=== PATIENT | male | born 1945 | race Caucasian/White ===

== ENCOUNTER → 2016-11-11 11:16 | Emergency (ER) | payer MEDICARE ==
[~2016-11-11 11:16] MED LIST: Ibuprofen TAB* 600 MG PO ONE
--- NOTE | 2016-11-11 12:05 | ED ---
Upper Extremity Pain - HPI Summary HPI Summary: Patient presents to ED 3 days s/p mechanical fall with FOOSH and wrist pain with hand swelling. He is able to move the wrist and fingers with mild to moderate amount of pain. There is a noticeable deformity over the radial side of the left wrist. Endorses tingling in the right thumb intermittently. He has limited use of the wrist and hand and is unable to squeeze the hand. Denies other pain or complaints at this time. He has taken aleve x 2 days without significant relief of pain and symptoms. Pulses +2 bilaterally and cap refill < 2 sec - History of Current Complaint Chief Complaint: EDExtremityUpper Stated Complaint: LT HAND SWELLING/PAIN FROM FALL Time Seen by Provider: 11/11/16 11:26 Hx Obtained From: Patient Mechanism Of Injury: Twisted Onset/Duration: Started Hours Ago Timing: Constant Severity Initially: Moderate Severity Currently: Moderate Pain Location: Wrist, Hand Character: Aching Aggravating Factor(s): Movement, Flexion, Extension Alleviating Factor(s): Rest Associated Signs & Symptoms: Positive: Swelling, Numbness/Tingling - Allergies/Home Medications Allergies/Adverse Reactions: Allergies Allergy/AdvReac Type Severity Reaction Status Date / Time Bacitracin [From Neosporin] Allergy Severe Rash Verified 11/11/16 11:22 Neomycin [From Neosporin] Allergy Severe Rash Verified 11/11/16 11:22 Nystatin Allergy Severe Rash Verified 11/11/16 11:22 Polymyxin B [From Neosporin] Allergy Severe Rash Verified 11/11/16 11:22 PMH/Surg Hx/FS Hx/Imm Hx Previously Healthy: Yes Endocrine/Hematology History: Reports: Hx Diabetes - diabetic neuropathy Cardiovascular History: Reports: Hx Hypertension Denies: Hx Pacemaker/ICD Respiratory History: Reports: Hx Sleep Apnea - inst to bring Musculoskeletal History: Reports: Hx Arthritis, Hx Gout Sensory History: Reports: Hx Contacts or Glasses Denies: Hx Hearing Aid Opthamlomology History: Reports: Hx Contacts or Glasses Psychiatric History: Reports: Hx Depression Denies: Hx Panic Disorder - Surgical History Surgery Procedure, Year, and Place: 1977 rt wrist [facility] 2007 left hip replacement [facility] , RT knee replacement 2013 Hx Anesthesia Reactions: No - Immunization History Hx Pertussis Vaccination: No Immunizations Up to Date: Unable to Obtain/Confirm Infectious Disease History: Denies: Traveled Outside the [place] in Last 30 Days - Social History Occupation: Unemployed Lives: With Family Alcohol Use: None Hx Substance Use: No Substance Use Type: Reports: None Hx Tobacco Use: Yes Smoking Status (MU): Former Smoker Review of Systems Constitutional: Negative Eyes: Negative Cardiovascular: Negative Genitourinary: Negative Positive: no symptoms reported, see HPI Positive: Arthralgia, Myalgia Skin: Negative Neurological: Negative All Other Systems Reviewed And Are Negative: Yes Physical Exam - Summary Physical Exam Summary: Thorough physical exam was performed, focusing on special wrist tests. Limited ROM. Pain with palpation over raidal aspect of wrist at radial head. No pain with palpation over radial aspect over radial head. No pain, swelling or tenderness over anatomical snuffbox. No crepitus noted. No pain on palpation over medial or lateral elbow or forearm tenderness. Due to patient pain around injury, physical exam was limited. Pulses intact bilaterally. No temperature change, color change or pallor noted bilaterally. Sensory intact of radial, medial and ulnar nerve. Capillary refill < 2 sec. Triage Information Reviewed: Yes Vital Signs On Initial Exam: Initial Vitals Temp Pulse Resp BP Pulse Ox 97.7 F 85 16 138/63 91 11/11/16 11:22 11/11/16 11:22 11/11/16 11:22 11/11/16 11:22 11/11/16 11:22 Vital Signs Reviewed: Yes Appearance: Positive: Well-Appearing, Well-Nourished Skin: Positive: Warm, Skin Color Reflects Adequate Perfusion, Other - swelling of left hand without ecchymosis Eyes: Positive: EOMI, JACKY, Conjunctiva Clear Neck: Positive: Supple, No Lymphadenopathy Respiratory/Lung Sounds: Positive: Clear to Auscultation, Breath Sounds Present Cardiovascular: Positive: Normal, RRR, Pulses are Symmetrical in both Upper and Lower Extremities Musculoskeletal: Positive: Pain @ - left wrist with obvious deformity Neurological: Positive: Sensory/Motor Intact, Speech Normal Psychiatric: Positive: Normal Diagnostics - Vital Signs Vital Signs Temp Pulse Resp BP Pulse Ox 11/11/16 11:22 97.7 F 85 16 138/63 91 - Laboratory Lab Statement: Any lab studies that have been ordered have been reviewed, and results considered in the medical decision making process. Course/Dx - Course Course Of Treatment: Patient given 600mg ibuprofen. Allergies and medications reviewed with patient. Based on [place] Wrist Rules, patient sent to imaging. Xray negative for fracture or other acute findings. Soft tissue swelling noted over the dorsal aspect of the wrist. Wrist was jem wrapped to patient comfort and allow for immobilization for this period of time. Patient encouraged to follow up with PCP in 1 week. Encouraged Ibuprofen 600mg three times daily with meals for pain. Return precautions given. Educated patient regarding wrist injuries, healing time and the possibility of further evaluation and imaging as orthopedist sees fit. Xrays show degenerative changes with no other findings. Wrist wrapped with jem wrap. Rx for ibuprofen 600mg. Medications were reveiwed with patient. Encouarged to follow up with PCP or return to ED for worsening symptoms. Return precautions given. Patient understands and agrees with plan. Ok for discharge. Assessment/Plan: follow up with PCP - Diagnoses Differential Diagnosis/HQI/PQRI: Positive: Contusion, Fracture (Closed), Strain , Sprain Provider Diagnoses: Left wrist sprain Discharge - Discharge Plan Condition: Stable Disposition: HOME Prescriptions: Ibuprofen TAB* [Motrin TAB* 600 MG] 600 mg PO Q8H PRN #30 tab MDD 3 PRN Reason: Pain Patient Education Materials: Wrist Sprain (ED) Referrals: Man Vincent MD [Primary Care Provider] - Additional Instructions: Jem wrap area for your comfort and to allow for immobilization during this time to prevent re-injury. Ibuprofen 600mg three times daily with meals for pain. Follow up with orthopedic physician in 5-7 days if any symptoms become worse. If numbness, tingling or decreased sensation develop, you notice color changes in your fingers or pain is worsening, come back to ED immediately for re- evaluation. Protect the area. For your comfort level, do not bear weight, pull or push until you can injury is somewhat healed. This may involve the need for immobilization or crutches for a period of time. Rest the involved area, but not too long. You may need to be off your injury for some time to allow for healing, however excessive immobilization of joints can lead to stiffness and delay healing time. Early mobilization is encouraged if it is pain-free. Ice. Not directly on the skin. Cover with a towel. Apply ice no more than 30 minutes at a time Compression: You may use and keep an jem wrap bandage over the injury to decrease swelling. Again, this should be limited and be taken off periodically to encourage early range of motion and mobilization. Elevate: Try to elevate the injured area above the heart whenever possible. Follow up with your PCP for any increased swelling.
--- NOTE | 2016-11-11 12:17 | RAD ---
Indication: Left wrist swelling 3 views of the wrist demonstrates no fracture. There are degenerative changes of the radiocarpal joint. Joint space narrowing is noted. Degenerative changes of the trapezium first metacarpal joint is noted. IMPRESSION: Degenerative changes of the radiocarpal joint and first carpal metacarpal joint. No fracture is noted.
--- NOTE | 2016-11-11 12:18 | RAD ---
Indication: Left hand injury and fall. 4 views of left hand demonstrates degenerative changes of the proximal and distal interphalangeal joints of the second through fifth digits. No fracture is identified. Degenerative changes of the radiocarpal joint is noted. IMPRESSION: Degenerative changes of the proximal and distal interphalangeal joints and of the radiocarpal joint.
[2016-11-11 12:57] VITALS: BP 121/68
== END | disposition home or self-care (01) ==
LOC: ED 11:16
DX: S63.502A Unspecified sprain of left wrist, initial encounter (principal); W19.XXXA Unspecified fall, initial encounter; Y93.9 Activity, unspecified; Y92.9 Unspecified place or not applicable; E11.40 Type 2 diabetes mellitus with diabetic neuropathy, unspecified; I10 Essential (primary) hypertension; F32.9 Major depressive disorder, single episode, unspecified; Z96.642 Presence of left artificial hip joint; Z96.651 Presence of right artificial knee joint; Z87.891 Personal history of nicotine dependence; Z88.3 Allergy status to other anti-infective agents
CPT/HCPCS: 99281; A9270-GY

== ENCOUNTER 2020-06-20 16:14 | Inpatient (IN) ==
[2020-06-20] MEDS ORDERED: NS 0.9% 1000 ml BAG 1,000 ML IV ONE (17:29)
[2020-06-20 19:21] LABS: ALT 18 U/L (7-52); AST 18 U/L (13-39); Albumin 3.7 g/dL (3.2-5.2); Albumin/Globulin Ratio 1.2 (1-3); Alkaline Phosphatase 59 U/L (34-104); Anion Gap 7 mmol/L (2-11); BUN/Creatinine Ratio 18.3 (8-20); Blood Urea Nitrogen 19 mg/dL (6-24); CO2 Carbon Dioxide 27 mmol/L (22-32); Calcium 9.4 mg/dL (8.6-10.3); Chloride 106 mmol/L (101-111); EGFR African American 84.2 (>60); EGFR Non-African American 69.6 (>60); Globulin 3.2 g/dL (2-4); Glucose 150 mg/dL (70-100); Potassium 4.8 mmol/L (3.5-5.0); Sodium 140 mmol/L (135-145); Total Protein 6.9 g/dL (6.4-8.9)
[2020-06-20] MEDS ORDERED: Diltiazem (ADVAN VIAL) 100 MG/100 ML ADDV.BAG IV SCH ×2 (20:00→22:50)
[2020-06-20 20:21] LABS: Magnesium 1.9 mg/dL (1.9-2.7)
[2020-06-20 20:23] LABS: ABS Basophils 0.1 10^3/ul (0-0.2); ABS Eosinophils 0.3 10^3/ul (0-0.6); ABS Lymphocytes 1.4 10^3/ul (1.0-4.8); ABS Monocytes 0.9 10^3/ul (0-0.8); ABS Neutrophils 7.6 10^3/ul (1.5-7.7); Eosinophil % 3.2 %; Hematocrit 39 % (42-52); Hemoglobin 13.2 g/dL (14.0-18.0); Lymphocyte % 13.8 %; Mean Corpuscular HGB Conc 34 g/dL (31-36); Mean Corpuscular Hemoglobin 31 pg (27-31); Mean Corpuscular Volume 91 fL (80-94); Mean Platelet Volume 6.1 fL (7.4-10.4); Platelet Count 341 10^3/uL (150-450); Red Blood Count 4.31 10^6 /uL (4.18-5.48); Red Cell Distribution Width 17 % (10-15); White Blood Count 10.3 10^3/uL (3.5-10.8)
[2020-06-20 20:33] LABS: Activated Partial Thrombo Time 31.4 seconds (26.0-38.0); INR 1.15 (0.82-1.09)
[2020-06-20] MEDS ORDERED: Diltiazem IV push/loading dose 5 MG/ML 5 ML vial (25 mg) IV SLOW PU ONE (20:52)
[2020-06-20 20:54] LABS: Troponin I 0.03 ng/mL (<0.03)
[2020-06-20] MEDS ORDERED: Iodixanol (CONTRAST) 320 MG/ML 100 ML SDV IV ONE (21:18)
[2020-06-20] MEDS ORDERED: Furosemide 20 mg/2 ml IV VIAL IV SLOW PU ONE (22:34)
[2020-06-20] MEDS: Insulin GLARGINE 100 un/ml 10 ml VIAL SUBCUT SCH (22:37)
[2020-06-20 22:59] LABS: TSH Ultra Thyroid Stim Horm 1.11 mcIU/mL (0.34-5.60)
[2020-06-21 04:32] LABS: ABS Basophils 0.1 10^3/ul (0-0.2); ABS Eosinophils 0.4 10^3/ul (0-0.6); ABS Monocytes 0.9 10^3/ul (0-0.8); ABS Neutrophils 6.2 10^3/ul (1.5-7.7); Eosinophil % 4.6 %; Hematocrit 37 % (42-52); Hemoglobin 12.1 g/dL (14.0-18.0); Lymphocyte % 20.6 %; Mean Corpuscular HGB Conc 33 g/dL (31-36); Mean Corpuscular Hemoglobin 30 pg (27-31); Mean Corpuscular Volume 91 fL (80-94); Mean Platelet Volume 5.9 fL (7.4-10.4); Platelet Count 321 10^3/uL (150-450); Red Blood Count 4.02 10^6 /uL (4.18-5.48); Red Cell Distribution Width 17 % (10-15); White Blood Count 9.6 10^3/uL (3.5-10.8)
[2020-06-21 04:52] LABS: Albumin 3.6 g/dL (3.2-5.2); Albumin/Globulin Ratio 1.3 (1-3); BUN/Creatinine Ratio 17.1 (8-20); EGFR African American 78.1 (>60); EGFR Non-African American 64.6 (>60); Globulin 2.8 g/dL (2-4); Total Bilirubin 0.3 mg/dL (0.2-1.0); Total Protein 6.4 g/dL (6.4-8.9)
[2020-06-21] MEDS: Dextrose 50% Syringe 50 ml 25 GM/50 ML SYRINGE IV PUSH PRN ×2 (08:25→11:35)
[2020-06-21] MEDS ORDERED: Perflutren Lipid Microsphere 3 ML VIAL ONE (08:48)
[2020-06-21] MEDS ORDERED: Aspirin EC 81 mg TAB.EC (enteric coated) PO SCH (09:00)
[2020-06-21] MEDS: Cholecalciferol (VIT D3) 1,000 unit TAB PO SCH (09:47)
[2020-06-21] MEDS: Insulin GLARGINE 100 un/ml 10 ml VIAL SUBCUT SCH (10:06)
[2020-06-21] MEDS ORDERED: Iodixanol (CONTRAST) 320 MG/ML 100 ML SDV IV ONE (10:45)
[2020-06-21] MEDS: D5LR 1000 ml BAG 1,000 ML IV SCH ×2 (11:35→20:09)
[2020-06-21] MEDS ORDERED: Midazolam 5 mg/5 ml VIAL 1 mg/ml 5 ml VIAL (5 mg) ONE (12:49)
[2020-06-21] MEDS ORDERED: Flumazenil 0.5 mg/5 ml 0.1 MG/ML 5 ml VIAL ONE (12:49)
[2020-06-21] MEDS ORDERED: fentaNYL 100 mcg/2 ml 50 MCG/ML VIAL ONE (12:49)
[2020-06-21] MEDS ORDERED: Naloxone 0.4 mg VIAL 0.4 mg/ml 1 ml VIAL ONE (12:49)
[2020-06-21] MEDS ORDERED: Lorazepam PYXIS KEY ONE ×2 (12:51→13:54)
[2020-06-21] MEDS ORDERED: LORazepam 2 mg VIAL 1 ml ONE (12:51)
[2020-06-22 04:30] LABS: ABS Basophils 0.1 10^3/ul (0-0.2); ABS Eosinophils 0.4 10^3/ul (0-0.6); ABS Lymphocytes 1.7 10^3/ul (1.0-4.8); ABS Monocytes 0.9 10^3/ul (0-0.8); Eosinophil % 4.7 %; Hematocrit 41 % (42-52); Hemoglobin 12.9 g/dL (14.0-18.0); Lymphocyte % 18.3 %; Mean Corpuscular HGB Conc 32 g/dL (31-36); Mean Corpuscular Hemoglobin 29 pg (27-31); Mean Corpuscular Volume 93 fL (80-94); Mean Platelet Volume 6.3 fL (7.4-10.4); Platelet Count 305 10^3/uL (150-450); Red Blood Count 4.39 10^6 /uL (4.18-5.48); Red Cell Distribution Width 17 % (10-15); White Blood Count 9.1 10^3/uL (3.5-10.8)
[2020-06-22 04:48] LABS: Albumin 3.6 g/dL (3.2-5.2); Albumin/Globulin Ratio 1.2 (1-3); BUN/Creatinine Ratio 18.4 (8-20); Calcium 9.2 mg/dL (8.6-10.3); EGFR African American 85.2 (>60); EGFR Non-African American 70.4 (>60); Magnesium 2.2 mg/dL (1.9-2.7); Total Bilirubin 0.5 mg/dL (0.2-1.0); Total Protein 6.6 g/dL (6.4-8.9)
[2020-06-22] MEDS: Cholecalciferol (VIT D3) 1,000 unit TAB PO SCH (07:59)
[2020-06-22] MEDS ORDERED: Digoxin IV 0.5 MG/2 ML AMP (0.25 MG/ML) IV SLOW PU ONE ×4 (08:17→23:00)
[2020-06-22] MEDS ORDERED: Calcium Carb (TUMS) 500 mg CHEW TAB PO PRN (14:58)
[2020-06-23 04:50] LABS: BUN/Creatinine Ratio 25.2 (8-20); Calcium 8.8 mg/dL (8.6-10.3)
[2020-06-23 04:53] LABS: Potassium 5.3 mmol/L (3.5-5.0)
[2020-06-23 09:00] LABS: Magnesium 2.1 mg/dL (1.9-2.7); Phosphorus 3.9 mg/dL (2.5-5.0)
[2020-06-23] MEDS: Cholecalciferol (VIT D3) 1,000 unit TAB PO SCH (09:04)
[2020-06-23] MEDS: Multivitamins/Minerals TAB PO SCH (10:43)
[2020-06-23] MEDS ORDERED: Furosemide 40 mg/4 ml IV VIAL IV ONE (10:53)
[2020-06-24] MEDS: Multivitamins/Minerals TAB PO SCH (09:10)
[2020-06-24] MEDS: Cholecalciferol (VIT D3) 1,000 unit TAB PO SCH (09:11)
[2020-06-24 09:35] LABS: ALT 11 U/L (7-52); AST 9 U/L (13-39); Albumin 3.6 g/dL (3.2-5.2); Albumin/Globulin Ratio 1.1 (1-3); Alkaline Phosphatase 53 U/L (34-104); Anion Gap 6 mmol/L (2-11); BUN/Creatinine Ratio 29.6 (8-20); Blood Urea Nitrogen 34 mg/dL (6-24); CO2 Carbon Dioxide 31 mmol/L (22-32); Calcium 9.2 mg/dL (8.6-10.3); Chloride 98 mmol/L (101-111); Globulin 3.3 g/dL (2-4); Glucose 153 mg/dL (70-100); Magnesium 2.2 mg/dL (1.9-2.7); Potassium 4.6 mmol/L (3.5-5.0); Sodium 135 mmol/L (135-145); Total Protein 6.9 g/dL (6.4-8.9)
[2020-06-24 09:38] LABS: % Iron Saturation 7 % (15-55); Iron 22 ug/dL (50-212); Total Iron Binding Capacity 304 mcg/dL (250-450); Transferrin 217 mg/dL (203-362); Unsaturated Iron Binding < 289 ug/dL
[2020-06-24 09:54] LABS: Ferritin 143.2 ng/mL (24-336)
[2020-06-24] MEDS ORDERED: Furosemide 40 mg/4 ml IV VIAL IV SLOW PU ONE (10:17)
[2020-06-24] MEDS: Iron Sucrose 200 MG in NS 0.9% 100 ml BAG 100 ML IVPB SCH (10:58)
[2020-06-25] MEDS: Cholecalciferol (VIT D3) 1,000 unit TAB PO SCH (08:27)
[2020-06-25] MEDS: Multivitamins/Minerals TAB PO SCH (08:28)
[2020-06-25] MEDS: Iron Sucrose 200 MG in NS 0.9% 100 ml BAG 100 ML IVPB SCH (08:35)
[2020-06-25 08:44] LABS: ABS Basophils 0.1 10^3/ul (0-0.2); ABS Eosinophils 0.5 10^3/ul (0-0.6); ABS Monocytes 0.9 10^3/ul (0-0.8); ABS Neutrophils 7.2 10^3/ul (1.5-7.7); Eosinophil % 5.3 %; Hematocrit 37 % (42-52); Lymphocyte % 10.8 %; Mean Corpuscular HGB Conc 33 g/dL (31-36); Mean Corpuscular Hemoglobin 30 pg (27-31); Mean Corpuscular Volume 91 fL (80-94); Mean Platelet Volume 6.5 fL (7.4-10.4); Nucleated Red Blood Cells % 0.1; Platelet Count 299 10^3/uL (150-450); Red Blood Count 4.05 10^6 /uL (4.18-5.48); Red Cell Distribution Width 17 % (10-15); White Blood Count 9.7 10^3/uL (3.5-10.8)
[2020-06-25 08:56] LABS: BUN/Creatinine Ratio 27.5 (8-20); Calcium 9.2 mg/dL (8.6-10.3); EGFR African American 79.8 (>60); EGFR Non-African American 65.9 (>60); Magnesium 2.1 mg/dL (1.9-2.7); Potassium 4.5 mmol/L (3.5-5.0)
[2020-06-25] MEDS ORDERED: Furosemide 100 mg/10 ml IV VIAL IV ONE (10:30)
[2020-06-25] MEDS ORDERED: Albuterol 2.5mg/3 ml (0.083%) NEB.SOLN INH PRN (11:31)
[2020-06-25] MEDS: Furosemide 100 mg/10 ml IV VIAL IV SCH (17:03)
[2020-06-26 07:55] LABS: ABS Basophils 0.1 10^3/ul (0-0.2); ABS Eosinophils 0.5 10^3/ul (0-0.6); ABS Lymphocytes 1.2 10^3/ul (1.0-4.8); ABS Monocytes 0.8 10^3/ul (0-0.8); Eosinophil % 5.3 %; Hematocrit 40 % (42-52); Hemoglobin 13.1 g/dL (14.0-18.0); Lymphocyte % 12.8 %; Mean Corpuscular HGB Conc 33 g/dL (31-36); Mean Corpuscular Hemoglobin 30 pg (27-31); Mean Corpuscular Volume 91 fL (80-94); Mean Platelet Volume 6.7 fL (7.4-10.4); Platelet Count 355 10^3/uL (150-450); Red Cell Distribution Width 17 % (10-15); White Blood Count 9.6 10^3/uL (3.5-10.8)
[2020-06-26 08:25] LABS: BUN/Creatinine Ratio 29.2 (8-20); Calcium 9.7 mg/dL (8.6-10.3); EGFR African American 82.4 (>60); EGFR Non-African American 68.1 (>60); Magnesium 1.9 mg/dL (1.9-2.7); Potassium 4.3 mmol/L (3.5-5.0)
[2020-06-26] MEDS: Multivitamins/Minerals TAB PO SCH (08:36)
[2020-06-26] MEDS: Cholecalciferol (VIT D3) 1,000 unit TAB PO SCH (08:36)
[2020-06-26] MEDS: Furosemide 100 mg/10 ml IV VIAL IV SCH ×2 (08:37→13:50)
[2020-06-26] MEDS: Iron Sucrose 200 MG in NS 0.9% 100 ml BAG 100 ML IVPB SCH (08:57)
[2020-06-27 06:26] LABS: ABS Basophils 0.1 10^3/ul (0-0.2); ABS Eosinophils 0.6 10^3/ul (0-0.6); ABS Lymphocytes 1.3 10^3/ul (1.0-4.8); ABS Neutrophils 6.8 10^3/ul (1.5-7.7); Hematocrit 41 % (42-52); Hemoglobin 13.4 g/dL (14.0-18.0); Lymphocyte % 13.3 %; Mean Corpuscular HGB Conc 33 g/dL (31-36); Mean Corpuscular Hemoglobin 30 pg (27-31); Mean Corpuscular Volume 91 fL (80-94); Mean Platelet Volume 6.3 fL (7.4-10.4); Nucleated Red Blood Cells % 0.1; Platelet Count 344 10^3/uL (150-450); Red Blood Count 4.52 10^6 /uL (4.18-5.48); Red Cell Distribution Width 17 % (10-15); White Blood Count 9.8 10^3/uL (3.5-10.8)
[2020-06-27 06:46] LABS: Albumin 3.5 g/dL (3.2-5.2); BUN/Creatinine Ratio 30.8 (8-20); Calcium 9.6 mg/dL (8.6-10.3); EGFR African American 81.5 (>60); EGFR Non-African American 67.4 (>60); Globulin 3.4 g/dL (2-4); Potassium 4.2 mmol/L (3.5-5.0); Total Bilirubin 0.6 mg/dL (0.2-1.0); Total Protein 6.9 g/dL (6.4-8.9)
[2020-06-27] MEDS: Furosemide 100 mg/10 ml IV VIAL IV SCH (08:33)
[2020-06-27] MEDS: Multivitamins/Minerals TAB PO SCH (08:34)
[2020-06-27] MEDS: Cholecalciferol (VIT D3) 1,000 unit TAB PO SCH (08:34)
[2020-06-27] MEDS: Iron Sucrose 200 MG in NS 0.9% 100 ml BAG 100 ML IVPB SCH (08:37)
[2020-06-27] MEDS ORDERED: Metoprolol Tartrate 5 mg VIAL 5 ml VIAL (1 mg/ml) IV ONE (19:31)
[2020-06-27] MEDS ORDERED: Digoxin IV 0.5 MG/2 ML AMP (0.25 MG/ML) IV SLOW PU ONE (19:56)
[2020-06-27] MEDS ORDERED: Metoprolol Tartrate 5 mg VIAL 5 ml VIAL (1 mg/ml) IV PRN (22:50)
[2020-06-28] MEDS ORDERED: Metoprolol Tartrate 5 mg VIAL 5 ml VIAL (1 mg/ml) IV ONE (08:35)
[2020-06-28] MEDS: Multivitamins/Minerals TAB PO SCH (09:06)
[2020-06-28] MEDS: Cholecalciferol (VIT D3) 1,000 unit TAB PO SCH (09:08)
[2020-06-28] MEDS: Iron Sucrose 200 MG in NS 0.9% 100 ml BAG 100 ML IVPB SCH ×2 (09:12→10:30)
[2020-06-28 09:25] LABS: ABS Basophils 0.1 10^3/ul (0-0.2); ABS Eosinophils 0.3 10^3/ul (0-0.6); ABS Lymphocytes 1.2 10^3/ul (1.0-4.8); ABS Monocytes 1.3 10^3/ul (0-0.8); ABS Neutrophils 10.1 10^3/ul (1.5-7.7); Eosinophil % 2.6 %; Hematocrit 42 % (42-52); Hemoglobin 13.9 g/dL (14.0-18.0); Lymphocyte % 9.4 %; Mean Corpuscular HGB Conc 33 g/dL (31-36); Mean Corpuscular Hemoglobin 30 pg (27-31); Mean Corpuscular Volume 90 fL (80-94); Mean Platelet Volume 6.4 fL (7.4-10.4); Platelet Count 375 10^3/uL (150-450); Red Blood Count 4.66 10^6 /uL (4.18-5.48); Red Cell Distribution Width 17 % (10-15); White Blood Count 13.1 10^3/uL (3.5-10.8)
[2020-06-28 09:45] LABS: Albumin 3.6 g/dL (3.2-5.2); BUN/Creatinine Ratio 33.3 (8-20); Calcium 9.5 mg/dL (8.6-10.3); EGFR African American 71.4 (>60); Globulin 3.6 g/dL (2-4); Magnesium 1.8 mg/dL (1.9-2.7); Potassium 4.3 mmol/L (3.5-5.0); Total Bilirubin 0.7 mg/dL (0.2-1.0); Total Protein 7.2 g/dL (6.4-8.9)
[2020-06-28] MEDS: Insulin GLARGINE 100 un/ml 10 ml VIAL SUBCUT SCH (09:48)
[2020-06-28 09:50] LABS: Digoxin 1.2 ng/ml (0.8-2.0)
[2020-06-28] MEDS ORDERED: Magnesium Sulfate IV 1GM/100ML 1 GM/100 ML BAG IV ONE (09:55)
[2020-06-28] MEDS ORDERED: Dextrose 50% Syringe 50 ml 25 GM/50 ML SYRINGE IV PUSH PRN (12:07)
[2020-06-28] MEDS: cefTRIAXone 1 gm/50 mL NS BAG 1 GM/50 ML BAG IVPB SCH (16:08)
[2020-06-28 17:19] LABS: Urine Appearance Cloudy; Urine Bilirubin Negative (Negative); Urine Blood Negative (Negative); Urine Color Yellow; Urine Glucose 1+(50 mg/dL) (Negative); Urine Ketones Negative (Negative); Urine Nitrite Negative (Negative); Urine Protein Negative (Negative); Urine Specific Gravity 1.014 (1.002-1.030); Urine Urobilinogen Negative (Negative)
[2020-06-28] MEDS: DOXYcycline 100 MG in NS 0.9% 250 ml 250 ML IVPB SCH (17:25)
[2020-06-29 05:48] LABS: ABS Basophils 0.1 10^3/ul (0-0.2); ABS Eosinophils 0.3 10^3/ul (0-0.6); ABS Lymphocytes 1.7 10^3/ul (1.0-4.8); ABS Monocytes 1.3 10^3/ul (0-0.8); ABS Neutrophils 9.2 10^3/ul (1.5-7.7); Eosinophil % 2.3 %; Hematocrit 41 % (42-52); Hemoglobin 13.6 g/dL (14.0-18.0); Lymphocyte % 13.2 %; Mean Corpuscular HGB Conc 33 g/dL (31-36); Mean Corpuscular Hemoglobin 30 pg (27-31); Mean Corpuscular Volume 90 fL (80-94); Mean Platelet Volume 6.6 fL (7.4-10.4); Platelet Count 383 10^3/uL (150-450); Red Blood Count 4.57 10^6 /uL (4.18-5.48); Red Cell Distribution Width 17 % (10-15); White Blood Count 12.6 10^3/uL (3.5-10.8)
[2020-06-29] MEDS: DOXYcycline 100 MG in NS 0.9% 250 ml 250 ML IVPB SCH ×2 (05:54→18:09)
[2020-06-29 06:01] LABS: BUN/Creatinine Ratio 28.8 (8-20); Calcium 9.6 mg/dL (8.6-10.3); EGFR African American 78.1 (>60); EGFR Non-African American 64.6 (>60); Magnesium 2.1 mg/dL (1.9-2.7); Potassium 4.1 mmol/L (3.5-5.0)
[2020-06-29] MEDS: Cholecalciferol (VIT D3) 1,000 unit TAB PO SCH (08:40)
[2020-06-29] MEDS: Multivitamins/Minerals TAB PO SCH (08:40)
[2020-06-29] MEDS: Insulin GLARGINE 100 un/ml 10 ml VIAL SUBCUT SCH (08:50)
[2020-06-29] MEDS ORDERED: COVID-19 VACCINE, MRNA(MODERNA)/PF 100 MCG/0.5 ML IM ONE (09:00)
[2020-06-29] MEDS ORDERED: Furosemide 40 mg/4 ml IV VIAL IV SLOW PU ONE (13:18)
[2020-06-29 13:39] LABS: C Reactive Protein 211.34 mg/L (<8.01)
[2020-06-29] MEDS: cefTRIAXone 1 gm/50 mL NS BAG 1 GM/50 ML BAG IVPB SCH (14:14)
[2020-06-30] MEDS: DOXYcycline 100 MG in NS 0.9% 250 ml 250 ML IVPB SCH (05:36)
[2020-06-30 08:34] LABS: BUN/Creatinine Ratio 30.7 (8-20); Calcium 9.7 mg/dL (8.6-10.3); EGFR African American 87.1 (>60)
[2020-06-30] MEDS: Cholecalciferol (VIT D3) 1,000 unit TAB PO SCH (09:37)
[2020-06-30] MEDS: Multivitamins/Minerals TAB PO SCH (09:37)
[2020-06-30] MEDS: Insulin GLARGINE 100 un/ml 10 ml VIAL SUBCUT SCH (10:00)
[2020-06-30] MEDS ORDERED: Furosemide 20 mg/2 ml IV VIAL IV SLOW PU ONE (12:38)
[2020-06-30 13:36] LABS: ABS Basophils 0.1 10^3/ul (0-0.2); ABS Eosinophils 0.4 10^3/ul (0-0.6); ABS Lymphocytes 0.8 10^3/ul (1.0-4.8); ABS Monocytes 0.9 10^3/ul (0-0.8); ABS Neutrophils 9.7 10^3/ul (1.5-7.7); Eosinophil % 3.6 %; Hematocrit 41 % (42-52); Hemoglobin 13.7 g/dL (14.0-18.0); Lymphocyte % 6.6 %; Mean Corpuscular HGB Conc 33 g/dL (31-36); Mean Corpuscular Hemoglobin 30 pg (27-31); Mean Corpuscular Volume 90 fL (80-94); Mean Platelet Volume 6.6 fL (7.4-10.4); Platelet Count 371 10^3/uL (150-450); Red Blood Count 4.58 10^6 /uL (4.18-5.48); Red Cell Distribution Width 17 % (10-15); White Blood Count 11.9 10^3/uL (3.5-10.8)
[2020-06-30] MEDS ORDERED: Furosemide 40 mg/4 ml IV VIAL IV SLOW PU ONE (15:00)
[2020-06-30] MEDS: cefTRIAXone 1 gm/50 mL NS BAG 1 GM/50 ML BAG IVPB SCH (15:21)
[2020-07-01] MEDS ORDERED: Metoprolol Tartrate 5 mg VIAL 5 ml VIAL (1 mg/ml) IV ONE ×2 (04:11→05:25)
[2020-07-01 05:01] LABS: ABS Basophils 0.1 10^3/ul (0-0.2); ABS Eosinophils 0.5 10^3/ul (0-0.6); ABS Lymphocytes 1.3 10^3/ul (1.0-4.8); ABS Monocytes 0.9 10^3/ul (0-0.8); ABS Neutrophils 8.5 10^3/ul (1.5-7.7); Eosinophil % 4.6 %; Hematocrit 41 % (42-52); Hemoglobin 13.9 g/dL (14.0-18.0); Lymphocyte % 11.5 %; Mean Corpuscular HGB Conc 34 g/dL (31-36); Mean Corpuscular Hemoglobin 31 pg (27-31); Mean Corpuscular Volume 90 fL (80-94); Mean Platelet Volume 6.5 fL (7.4-10.4); Nucleated Red Blood Cells % 0.1; Platelet Count 403 10^3/uL (150-450); Red Blood Count 4.53 10^6 /uL (4.18-5.48); Red Cell Distribution Width 17 % (10-15); White Blood Count 11.4 10^3/uL (3.5-10.8)
[2020-07-01 05:19] LABS: BUN/Creatinine Ratio 31.1 (8-20); C Reactive Protein 179.66 mg/L (<8.01); Calcium 9.6 mg/dL (8.6-10.3); EGFR African American 82.4 (>60); EGFR Non-African American 68.1 (>60)
[2020-07-01] MEDS: Cholecalciferol (VIT D3) 1,000 unit TAB PO SCH (09:04)
[2020-07-01] MEDS: Multivitamins/Minerals TAB PO SCH (09:06)
[2020-07-01] MEDS: Insulin GLARGINE 100 un/ml 10 ml VIAL SUBCUT SCH ×2 (09:07→21:38)
[2020-07-01 09:22] LABS: Magnesium 1.9 mg/dL (1.9-2.7)
[2020-07-01] MEDS ORDERED: Furosemide 40 mg/4 ml IV VIAL ONE (09:22)
[2020-07-01] MEDS: Furosemide 40 mg/4 ml IV VIAL IV SLOW PU ONE ×2 (09:35→17:04)
[2020-07-02 05:00] LABS: ABS Basophils 0.1 10^3/ul (0-0.2); ABS Eosinophils 0.4 10^3/ul (0-0.6); ABS Lymphocytes 1.8 10^3/ul (1.0-4.8); ABS Neutrophils 7.8 10^3/ul (1.5-7.7); Hematocrit 43 % (42-52); Hemoglobin 13.9 g/dL (14.0-18.0); Lymphocyte % 16.2 %; Mean Corpuscular HGB Conc 33 g/dL (31-36); Mean Corpuscular Hemoglobin 30 pg (27-31); Mean Corpuscular Volume 90 fL (80-94); Mean Platelet Volume 6.8 fL (7.4-10.4); Nucleated Red Blood Cells % 0.1; Platelet Count 407 10^3/uL (150-450); Red Cell Distribution Width 17 % (10-15); White Blood Count 11.2 10^3/uL (3.5-10.8)
[2020-07-02 05:21] LABS: Anion Gap 8 mmol/L (2-11); BUN/Creatinine Ratio 30.4 (8-20); Blood Urea Nitrogen 34 mg/dL (6-24); CO2 Carbon Dioxide 35 mmol/L (22-32); Calcium 9.7 mg/dL (8.6-10.3); Chloride 95 mmol/L (101-111); EGFR African American 77.3 (>60); EGFR Non-African American 63.9 (>60); Glucose 192 mg/dL (70-100); Potassium 3.9 mmol/L (3.5-5.0); Sodium 138 mmol/L (135-145)
[2020-07-02] MEDS: Multivitamins/Minerals TAB PO SCH (08:49)
[2020-07-02] MEDS: Cholecalciferol (VIT D3) 1,000 unit TAB PO SCH (08:49)
[2020-07-02] MEDS: Insulin GLARGINE 100 un/ml 10 ml VIAL SUBCUT SCH ×2 (08:50→21:02)
[2020-07-02] MEDS ORDERED: Potassium Chlor 20 meq TAB.ER PO ONE ×2 (09:41→17:00)
[2020-07-02] MEDS ORDERED: Furosemide 20 mg/2 ml IV VIAL IV SLOW PU ONE ×2 (09:43→11:16)
[2020-07-02] MEDS ORDERED: Metoprolol Tartrate 5 mg VIAL 5 ml VIAL (1 mg/ml) IV ONE ×2 (11:27→16:09)
[2020-07-02] MEDS ORDERED: Metoprolol Tartrate 5 mg VIAL 5 ml VIAL (1 mg/ml) ONE (11:40)
[2020-07-02] MEDS ORDERED: Furosemide 40 mg/4 ml IV VIAL IV SLOW PU ONE (15:00)
[2020-07-02] MEDS ORDERED: Iron Sucrose 200 MG in NS 0.9% 100 ml BAG 100 ML IVPB ONE (16:10)
[2020-07-02] MEDS ORDERED: Potassium Chloride LIQUID 20 MEQ/15 ML LIQUID PO ONE (16:13)
[2020-07-02 17:02] LABS: Troponin I 0.03 ng/mL (<0.03)
[2020-07-03] MEDS ORDERED: Insulin GLARGINE 100 un/ml 10 ml VIAL SUBCUT ONE ×2 (08:12→21:00)
[2020-07-03] MEDS: Insulin GLARGINE 100 un/ml 10 ml VIAL SUBCUT SCH ×2 (08:13→20:48)
[2020-07-03] MEDS ORDERED: Perflutren Lipid Microsphere 3 ML VIAL ONE (08:31)
[2020-07-03 08:32] LABS: ABS Basophils 0.1 10^3/ul (0-0.2); ABS Eosinophils 0.4 10^3/ul (0-0.6); ABS Lymphocytes 1.6 10^3/ul (1.0-4.8); ABS Monocytes 1.1 10^3/ul (0-0.8); ABS Neutrophils 8.9 10^3/ul (1.5-7.7); Eosinophil % 3.3 %; Hematocrit 43 % (42-52); Hemoglobin 14.2 g/dL (14.0-18.0); Lymphocyte % 13.1 %; Mean Corpuscular HGB Conc 33 g/dL (31-36); Mean Corpuscular Hemoglobin 30 pg (27-31); Mean Corpuscular Volume 90 fL (80-94); Mean Platelet Volume 6.9 fL (7.4-10.4); Nucleated Red Blood Cells % 0.1; Platelet Count 398 10^3/uL (150-450); Red Blood Count 4.76 10^6 /uL (4.18-5.48); Red Cell Distribution Width 17 % (10-15); White Blood Count 12.1 10^3/uL (3.5-10.8)
[2020-07-03] MEDS: Cholecalciferol (VIT D3) 1,000 unit TAB PO SCH (08:35)
[2020-07-03] MEDS: Multivitamins/Minerals TAB PO SCH (08:35)
[2020-07-03 08:36] LABS: BUN/Creatinine Ratio 29.4 (8-20); Calcium 9.9 mg/dL (8.6-10.3); EGFR African American 79.8 (>60); EGFR Non-African American 65.9 (>60); Potassium 4.2 mmol/L (3.5-5.0)
[2020-07-03 08:53] LABS: Activated Partial Thrombo Time 35.7 seconds (26.0-38.0); INR 1.4 (0.82-1.09)
[2020-07-03 09:11] LABS: C Reactive Protein 133.99 mg/L (<8.01)
[2020-07-03] MEDS ORDERED: VERAPAMIL 2.5 MG/ML 2 ML VIAL ** 5 mg/2 ml ONE (12:47)
[2020-07-03] MEDS ORDERED: Iohexol 350 (CONTRAST) 200 ML MDV IV ONE (12:47)
[2020-07-03] MEDS ORDERED: Heparin 1,000 UNIT/ML 10 ml (10,000 UNITS) CATHLAB/DIALYSIS ONE (12:47)
[2020-07-03] MEDS ORDERED: Midazolam 5 mg/5 ml VIAL 1 mg/ml 5 ml VIAL (5 mg) ONE (12:47)
[2020-07-03] MEDS ORDERED: fentaNYL 100 mcg/2 ml 50 MCG/ML VIAL ONE (12:47)
[2020-07-03] MEDS ORDERED: Lidocaine 1% VIAL 10 MG/ML VIAL ONE ×2 (12:47→13:56)
[2020-07-03] MEDS ORDERED: nitroGLYCERIN DRIP 25,000 MCG/250 ML BTL ONE (12:48)
[2020-07-03] MEDS ORDERED: Heparin 2 UNITS/ML IVPREMIX 2,000 UNIT/1,000 ML BAG IV ONE (12:49)
[2020-07-03] MEDS ORDERED: Heparin 2 UNITS/ML IVPREMIX 1,000 UNIT/500 ML BAG IV ONE (13:33)
[2020-07-03] MEDS ORDERED: ceFAZolin 2 GM PREMIX 2 GM/50 ML BAG IVPB ONE (14:00)
[2020-07-03] MEDS ORDERED: ceFAZolin VIAL 1 GM in NS *SYRINGE* 10 ML IVPB ONE (14:00)
[2020-07-03] MEDS ORDERED: NS 0.9% 1000 ml BAG 1,000 ML IV SCH (15:00)
[2020-07-03] MEDS ORDERED: Furosemide 40 mg/4 ml IV VIAL IV SLOW PU ONE (17:00)
[2020-07-03] MEDS ORDERED: Senna TAB 8.6 mg TAB PO PRN (19:33)
[2020-07-03] MEDS ORDERED: Magnesium Hydroxide LIQ 30 ML UDC PO PRN (19:33)
[2020-07-04] MEDS ORDERED: Ketamine HCL 50 mg/ml 10 ml VIAL (500 MG) ONE (06:54)
[2020-07-04] MEDS ORDERED: Midazolam 10 mg/10 ml VIAL 1 mg/ml 10 ml VIAL (10 mg) ONE (06:54)
[2020-07-04] MEDS ORDERED: Propofol 10 MG/ML 20 ML BTL ONE (06:54)
[2020-07-04] MEDS ORDERED: fentaNYL 100 mcg/2 ml 50 MCG/ML VIAL ONE (06:54)
[2020-07-04] MEDS ORDERED: Lidocaine 2% PF 5 ML VIAL ONE (06:54)
[2020-07-04] MEDS ORDERED: Ondansetron 4 mg VIAL 2 MG/ML 2 ml VIAL ONE (06:54)
[2020-07-04] MEDS ORDERED: ceFAZolin 2 GM PREMIX 2 GM/50 ML BAG IVPB ONE (07:04)
[2020-07-04] MEDS ORDERED: ceFAZolin VIAL 1 GM in NS 0.9% 50 ML 50 ML IVPB ONE (07:04)
[2020-07-04] MEDS ORDERED: ceFAZolin 1 GM/10 ML flush SYRINGE for pocket flush (cardiology) FLUSH ONE (07:04)
[2020-07-04 07:09] LABS: ABS Basophils 0.1 10^3/ul (0-0.2); ABS Eosinophils 0.4 10^3/ul (0-0.6); ABS Lymphocytes 1.3 10^3/ul (1.0-4.8); ABS Neutrophils 9.1 10^3/ul (1.5-7.7); Eosinophil % 3.5 %; Hematocrit 42 % (42-52); Hemoglobin 13.9 g/dL (14.0-18.0); Lymphocyte % 10.8 %; Mean Corpuscular HGB Conc 33 g/dL (31-36); Mean Corpuscular Hemoglobin 30 pg (27-31); Mean Corpuscular Volume 91 fL (80-94); Mean Platelet Volume 6.6 fL (7.4-10.4); Platelet Count 332 10^3/uL (150-450); Red Blood Count 4.59 10^6 /uL (4.18-5.48); Red Cell Distribution Width 17 % (10-15); White Blood Count 11.9 10^3/uL (3.5-10.8)
[2020-07-04 07:29] LABS: BUN/Creatinine Ratio 25.5 (8-20); Calcium 9.6 mg/dL (8.6-10.3); EGFR African American 86.2 (>60); EGFR Non-African American 71.2 (>60); Potassium 4.2 mmol/L (3.5-5.0)
[2020-07-04] MEDS ORDERED: ceFAZolin 2 GM PREMIX 2 GM/50 ML BAG ONE (07:51)
[2020-07-04] MEDS ORDERED: ceFAZolin VIAL 1 GM in NS *SYRINGE* 10 ML IVPB ONE (08:00)
[2020-07-04] MEDS ORDERED: Lidocaine 1% VIAL 10 MG/ML VIAL ONE (08:20)
[2020-07-04] MEDS ORDERED: Metoprolol Tartrate 5 mg VIAL 5 ml VIAL (1 mg/ml) ONE (08:26)
[2020-07-04] MEDS ORDERED: Insulin GLARGINE 100 un/ml 10 ml VIAL SUBCUT SCH (09:00)
[2020-07-04] MEDS ORDERED: oxyCODONE/Acetamin 5/325 mg TAB PO PRN (09:10)
[2020-07-04] MEDS ORDERED: Phenylephrine 40 mcg/mL 10mL (400mcg) SYRINGE ONE (09:21)
[2020-07-04] MEDS ORDERED: Phenylephrine IV 10 MG/ML 1 ml VIAL ONE (09:21)
[2020-07-04] MEDS ORDERED: EPHEDrine (Pressors) 50 MG/ML VIAL ONE (09:22)
[2020-07-04] MEDS: Cholecalciferol (VIT D3) 1,000 unit TAB PO SCH (10:51)
[2020-07-04] MEDS: Multivitamins/Minerals TAB PO SCH (10:52)
[2020-07-04] MEDS: Insulin GLARGINE 100 un/ml 10 ml VIAL SUBCUT SCH ×2 (10:56→21:28)
[2020-07-04] MEDS: ceFAZolin VIAL 1 GM in NS 0.9% 50 ML 50 ML IVPB SCH (16:25)
[2020-07-05] MEDS: ceFAZolin VIAL 1 GM in NS 0.9% 50 ML 50 ML IVPB SCH ×2 (01:37→08:41)
[2020-07-05 06:41] LABS: ABS Basophils 0.1 10^3/ul (0-0.2); ABS Eosinophils 0.3 10^3/ul (0-0.6); ABS Lymphocytes 1.3 10^3/ul (1.0-4.8); ABS Monocytes 1.2 10^3/ul (0-0.8); ABS Neutrophils 9.5 10^3/ul (1.5-7.7); Eosinophil % 2.3 %; Hematocrit 41 % (42-52); Hemoglobin 13.3 g/dL (14.0-18.0); Lymphocyte % 10.4 %; Mean Corpuscular HGB Conc 33 g/dL (31-36); Mean Corpuscular Hemoglobin 29 pg (27-31); Mean Corpuscular Volume 90 fL (80-94); Mean Platelet Volume 6.6 fL (7.4-10.4); Platelet Count 325 10^3/uL (150-450); Red Blood Count 4.52 10^6 /uL (4.18-5.48); Red Cell Distribution Width 17 % (10-15); White Blood Count 12.3 10^3/uL (3.5-10.8)
[2020-07-05 07:53] LABS: BUN/Creatinine Ratio 23.8 (8-20); Calcium 9.4 mg/dL (8.6-10.3); EGFR African American 87.1 (>60); Potassium 3.9 mmol/L (3.5-5.0)
[2020-07-05 08:25] LABS: C Reactive Protein 222.8 mg/L (<8.01)
[2020-07-05 09:30] LABS: Magnesium 2.1 mg/dL (1.9-2.7)
[2020-07-05] MEDS: Cholecalciferol (VIT D3) 1,000 unit TAB PO SCH (09:50)
[2020-07-05] MEDS: Multivitamins/Minerals TAB PO SCH (09:50)
[2020-07-05] MEDS: Insulin GLARGINE 100 un/ml 10 ml VIAL SUBCUT SCH ×2 (09:51→21:10)
[2020-07-05] MEDS ORDERED: Bumetanide IV 0.25 MG/ML 4 ml VIAL (1 mg) SLOW PUSH ONE (10:00)
[2020-07-06 06:15] LABS: ABS Basophils 0.1 10^3/ul (0-0.2); ABS Eosinophils 0.3 10^3/ul (0-0.6); ABS Lymphocytes 0.9 10^3/ul (1.0-4.8); ABS Monocytes 1.2 10^3/ul (0-0.8); ABS Neutrophils 11.7 10^3/ul (1.5-7.7); Eosinophil % 1.9 %; Hematocrit 43 % (42-52); Hemoglobin 14.1 g/dL (14.0-18.0); Lymphocyte % 6.5 %; Mean Corpuscular HGB Conc 33 g/dL (31-36); Mean Corpuscular Hemoglobin 30 pg (27-31); Mean Corpuscular Volume 90 fL (80-94); Mean Platelet Volume 6.8 fL (7.4-10.4); Platelet Count 348 10^3/uL (150-450); Red Blood Count 4.74 10^6 /uL (4.18-5.48); Red Cell Distribution Width 17 % (10-15); White Blood Count 14.1 10^3/uL (3.5-10.8)
[2020-07-06 06:29] LABS: BUN/Creatinine Ratio 26.9 (8-20); Calcium 9.8 mg/dL (8.6-10.3); EGFR African American 84.2 (>60); EGFR Non-African American 69.6 (>60); Potassium 3.9 mmol/L (3.5-5.0)
[2020-07-06] MEDS: Insulin GLARGINE 100 un/ml 10 ml VIAL SUBCUT SCH ×2 (09:22→21:07)
[2020-07-06] MEDS: Multivitamins/Minerals TAB PO SCH (09:23)
[2020-07-06] MEDS: Cholecalciferol (VIT D3) 1,000 unit TAB PO SCH (09:23)
[2020-07-06 17:41] LABS: C Reactive Protein 255.53 mg/L (<8.01)
[2020-07-07] MEDS: Insulin GLARGINE 100 un/ml 10 ml VIAL SUBCUT SCH ×2 (10:21→21:06)
[2020-07-07] MEDS: Cholecalciferol (VIT D3) 1,000 unit TAB PO SCH (10:37)
[2020-07-07] MEDS: Multivitamins/Minerals TAB PO SCH (10:37)
[2020-07-08 06:14] LABS: ABS Basophils 0.1 10^3/ul (0-0.2); ABS Eosinophils 0.2 10^3/ul (0-0.6); ABS Lymphocytes 1.3 10^3/ul (1.0-4.8); ABS Monocytes 1.2 10^3/ul (0-0.8); ABS Neutrophils 8.3 10^3/ul (1.5-7.7); Eosinophil % 2.2 %; Hematocrit 42 % (42-52); Hemoglobin 13.6 g/dL (14.0-18.0); Lymphocyte % 11.4 %; Mean Corpuscular HGB Conc 33 g/dL (31-36); Mean Corpuscular Hemoglobin 30 pg (27-31); Mean Corpuscular Volume 90 fL (80-94); Mean Platelet Volume 6.7 fL (7.4-10.4); Platelet Count 383 10^3/uL (150-450); Red Cell Distribution Width 17 % (10-15)
[2020-07-08 06:31] LABS: BUN/Creatinine Ratio 36.1 (8-20); C Reactive Protein 335.24 mg/L (<8.01); Calcium 9.7 mg/dL (8.6-10.3); EGFR African American 80.7 (>60); EGFR Non-African American 66.7 (>60); Potassium 3.7 mmol/L (3.5-5.0)
[2020-07-08 08:34] VITALS: BP 101/59
[2020-07-08] MEDS: Multivitamins/Minerals TAB PO SCH (08:58)
[2020-07-08] MEDS: Cholecalciferol (VIT D3) 1,000 unit TAB PO SCH (08:59)
[2020-07-08] MEDS: Insulin GLARGINE 100 un/ml 10 ml VIAL SUBCUT SCH (09:27)
== END 2020-07-08 09:45 | DRG 242 ==
LOC: ED 16:14 → ICU 20:53 → MEDTELE 06-23 17:33
PROVIDERS: ADMIT Internal Medicine Critical Care Medicine; ATTEND Internal Medicine

== ENCOUNTER 2020-10-07 16:58 | Inpatient (IN) ==
[2020-10-07] MEDS ORDERED: Piperacillin/Tazobac ADVAN 3.375 GM in NS 0.9% 100 ml BAG 100 ML IVPB ONE (17:15)
[2020-10-07] MEDS ORDERED: NS 0.9% 1000 ml BAG 1,000 ML IV ONE (17:20)
[2020-10-07] MEDS ORDERED: Vancomycin 2,000 MG in NS 0.9% 500 ml BAG 500 ML IVPB ONE (18:00)
[2020-10-07 18:04] LABS: ABS Basophils 0.1 10^3/ul (0-0.2); ABS Eosinophils 0.6 10^3/ul (0-0.6); ABS Lymphocytes 1.5 10^3/ul (1.0-4.8); ABS Monocytes 0.9 10^3/ul (0-0.8); ABS Neutrophils 7.6 10^3/ul (1.5-7.7); Eosinophil % 5.3 %; Hematocrit 35 % (42-52); Hemoglobin 11.2 g/dL (14.0-18.0); Lymphocyte % 14.1 %; Mean Corpuscular HGB Conc 32 g/dL (31-36); Mean Corpuscular Hemoglobin 28 pg (27-31); Mean Corpuscular Volume 88 fL (80-94); Mean Platelet Volume 6.6 fL (7.4-10.4); Platelet Count 356 10^3/uL (150-450); Red Blood Count 3.96 10^6 /uL (4.18-5.48); Red Cell Distribution Width 18 % (10-15); White Blood Count 10.6 10^3/uL (3.5-10.8)
[2020-10-07 18:17] LABS: Activated Partial Thrombo Time 35.4 seconds (26.0-38.0); INR 1.53 (0.86-1.15)
[2020-10-07 18:20] LABS: Albumin 3.3 g/dL (3.2-5.2); Albumin/Globulin Ratio 0.7 (1-3); C Reactive Protein 126.95 mg/L (<8.01); Calcium 9.9 mg/dL (8.6-10.3); EGFR African American 23.5 (>60); EGFR Non-African American 19.5 (>60); Globulin 4.5 g/dL (2-4); Potassium 4.6 mmol/L (3.5-5.0); Total Bilirubin 0.3 mg/dL (0.2-1.0); Total Protein 7.8 g/dL (6.4-8.9)
[2020-10-07 18:21] LABS: Troponin I 0.01 ng/mL (<0.03)
[2020-10-07] MEDS: Lactated Ringers 1000 ml BAG 1,000 ML IV SCH ×2 (20:00→23:33)
[2020-10-07 20:31] LABS: Urine Appearance Clear; Urine Bilirubin Negative (Negative); Urine Blood Negative (Negative); Urine Color Yellow; Urine Glucose Negative (Negative); Urine Ketones Negative (Negative); Urine Nitrite Negative (Negative); Urine Protein Negative (Negative); Urine Specific Gravity 1.008 (1.002-1.030); Urine Urobilinogen Negative (Negative)
[2020-10-07] MEDS ORDERED: Lactated Ringers 1000 ml BAG 1,000 ML IV ONE (21:09)
[2020-10-07] MEDS ORDERED: Vancomycin 1,000 MG in NS 0.9% 250 ml 250 ML IVPB ONE (21:09)
[2020-10-07] MEDS ORDERED: Dextrose 50% Syringe 50 ml 25 GM/50 ML SYRINGE IV PUSH PRN (21:09)
[2020-10-07] MEDS ORDERED: Albuterol HFA INHALER 8 gm MDI INH PRN (21:24)
[2020-10-07] MEDS ORDERED: Cefepime 2 GM IV - ED ONCE IV ONE (22:00)
[2020-10-07] MEDS ORDERED: metroNIDAZOLE IV 500 MG/100ML 100 ML IVPB ONE (22:00)
[2020-10-07] MEDS ORDERED: Vancomycin per Pharmacy 1 EA NOTE FOLLOW UP SCH (22:00)
[2020-10-08] MEDS ORDERED: Lidocaine 2% JELLY 6 ML TOPICAL ONE (01:06)
[2020-10-08 07:11] LABS: ABS Basophils 0.1 10^3/ul (0-0.2); ABS Eosinophils 0.5 10^3/ul (0-0.6); ABS Lymphocytes 1.2 10^3/ul (1.0-4.8); ABS Monocytes 0.7 10^3/ul (0-0.8); ABS Neutrophils 6.4 10^3/ul (1.5-7.7); Eosinophil % 5.2 %; Hematocrit 31 % (42-52); Hemoglobin 10.3 g/dL (14.0-18.0); Lymphocyte % 13.5 %; Mean Corpuscular HGB Conc 33 g/dL (31-36); Mean Corpuscular Hemoglobin 29 pg (27-31); Mean Corpuscular Volume 89 fL (80-94); Mean Platelet Volume 6.2 fL (7.4-10.4); Platelet Count 304 10^3/uL (150-450); Red Blood Count 3.54 10^6 /uL (4.18-5.48); Red Cell Distribution Width 18 % (10-15); White Blood Count 8.8 10^3/uL (3.5-10.8)
[2020-10-08 07:24] LABS: INR 1.45 (0.86-1.15)
[2020-10-08 07:27] LABS: C Reactive Protein 115.67 mg/L (<8.01); Calcium 9.5 mg/dL (8.6-10.3); EGFR African American 26.5 (>60); EGFR Non-African American 21.9 (>60); Potassium 4.3 mmol/L (3.5-5.0)
[2020-10-08] MEDS: metroNIDAZOLE IV 500 MG/100ML 500 MG/100 ML BAG IVPB SCH ×2 (08:45→16:31)
[2020-10-08] MEDS: Insulin GLARGINE 100 un/ml 10 ml VIAL SUBCUT SCH ×2 (08:47→21:12)
[2020-10-08] MEDS ORDERED: NS 0.9% 1000 ml BAG 1,000 ML IV SCH (14:45)
[2020-10-08] MEDS ORDERED: Vancomycin Random Level NOTE FOLLOW UP ONE (18:00)
[2020-10-08 18:54] LABS: EGFR African American 30.6 (>60); EGFR Non-African American 25.3 (>60)
[2020-10-08 19:13] LABS: Vancomycin Random 12.3 mcg/mL
[2020-10-08] MEDS ORDERED: Vancomycin 1,500 MG in NS 0.9% 250 ml 250 ML IVPB ONE (20:00)
[2020-10-08] MEDS ORDERED: Cefepime 2 GM in Dextrose 2 GM/50 ML BAG IV SCH (21:00)
[2020-10-09] MEDS: metroNIDAZOLE IV 500 MG/100ML 500 MG/100 ML BAG IVPB SCH ×2 (00:54→08:16)
[2020-10-09 06:47] LABS: ABS Basophils 0.1 10^3/ul (0-0.2); ABS Eosinophils 0.6 10^3/ul (0-0.6); ABS Lymphocytes 1.1 10^3/ul (1.0-4.8); ABS Monocytes 0.6 10^3/ul (0-0.8); Eosinophil % 8.5 %; Hematocrit 30 % (42-52); Lymphocyte % 14.8 %; Mean Corpuscular HGB Conc 33 g/dL (31-36); Mean Corpuscular Hemoglobin 29 pg (27-31); Mean Corpuscular Volume 89 fL (80-94); Mean Platelet Volume 6.5 fL (7.4-10.4); Nucleated Red Blood Cells % 0.1; Platelet Count 286 10^3/uL (150-450); Red Blood Count 3.44 10^6 /uL (4.18-5.48); Red Cell Distribution Width 19 % (10-15); White Blood Count 7.3 10^3/uL (3.5-10.8)
[2020-10-09 07:02] LABS: Calcium 9.1 mg/dL (8.6-10.3); EGFR African American 32.2 (>60); EGFR Non-African American 26.7 (>60); Potassium 3.8 mmol/L (3.5-5.0)
[2020-10-09] MEDS ORDERED: Vancomycin Random Level NOTE FOLLOW UP ONE (13:00)
[2020-10-09] MEDS: Collagenase 250 units/gm OINT 1 tube TOPICAL SCH (13:21)
[2020-10-09] MEDS: cefTRIAXone 1 gm/50 mL NS BAG 1 GM/50 ML BAG IVPB SCH (22:27)
[2020-10-10] MEDS: Insulin GLARGINE 100 un/ml 10 ml VIAL SUBCUT SCH ×2 (00:22→20:51)
[2020-10-10] MEDS ORDERED: Vancomycin Random Level NOTE FOLLOW UP ONE (06:00)
[2020-10-10 06:27] LABS: ABS Basophils 0.1 10^3/ul (0-0.2); ABS Eosinophils 0.7 10^3/ul (0-0.6); ABS Lymphocytes 1.2 10^3/ul (1.0-4.8); ABS Monocytes 0.6 10^3/ul (0-0.8); ABS Neutrophils 4.6 10^3/ul (1.5-7.7); Hematocrit 33 % (42-52); Hemoglobin 10.9 g/dL (14.0-18.0); Lymphocyte % 16.3 %; Mean Corpuscular HGB Conc 33 g/dL (31-36); Mean Corpuscular Hemoglobin 30 pg (27-31); Mean Corpuscular Volume 89 fL (80-94); Mean Platelet Volume 6.2 fL (7.4-10.4); Platelet Count 286 10^3/uL (150-450); Red Blood Count 3.66 10^6 /uL (4.18-5.48); Red Cell Distribution Width 18 % (10-15); White Blood Count 7.1 10^3/uL (3.5-10.8)
[2020-10-10 06:51] LABS: Calcium 9.7 mg/dL (8.6-10.3); EGFR African American 42.8 (>60); EGFR Non-African American 35.4 (>60); Magnesium 1.7 mg/dL (1.9-2.7); Vancomycin Random 15.1 mcg/mL
[2020-10-10] MEDS ORDERED: Magnesium Sulfate 2 gm BAG 2 GM/50 ML BAG IVPB ONE (07:10)
[2020-10-10 07:55] LABS: C Reactive Protein 72.59 mg/L (<8.01)
[2020-10-10] MEDS: Collagenase 250 units/gm OINT 1 tube TOPICAL SCH ×2 (10:36→22:40)
[2020-10-10] MEDS ORDERED: Vancomycin 1000 MG in NS 0.9% 250 ML IVPB ONE (13:00)
[2020-10-10] MEDS: cefTRIAXone 1 gm/50 mL NS BAG 1 GM/50 ML BAG IVPB SCH (20:46)
[2020-10-11] MEDS ORDERED: Vancomycin Random Level NOTE FOLLOW UP ONE (06:00)
[2020-10-11 08:20] LABS: C Reactive Protein 41.87 mg/L (<8.01); Calcium 9.5 mg/dL (8.6-10.3); EGFR African American 49.1 (>60); EGFR Non-African American 40.6 (>60); Magnesium 1.8 mg/dL (1.9-2.7); Potassium 3.9 mmol/L (3.5-5.0)
[2020-10-11] MEDS: Collagenase 250 units/gm OINT 1 tube TOPICAL SCH (08:26)
[2020-10-11] MEDS ORDERED: NS 0.9% 1000 ml BAG 1,000 ML IV SCH (13:45)
[2020-10-11] MEDS ORDERED: Midazolam 2 mg/2 ml VIAL 1 mg/ml 2 ml VIAL (2 mg) ONE (14:12)
[2020-10-11] MEDS ORDERED: Ketamine HCL 50 mg/ml 10 ml VIAL (500 MG) ONE (14:12)
[2020-10-11] MEDS ORDERED: fentaNYL 100 mcg/2 ml 50 MCG/ML VIAL ONE (14:12)
[2020-10-11] MEDS ORDERED: Iodixanol 320 (CONTRAST) 100 ML SDV ONE (14:45)
[2020-10-11] MEDS ORDERED: Iohexol 350 (CONTRAST) 200 ML MDV IV ONE (14:45)
[2020-10-11] MEDS ORDERED: Lidocaine 1% VIAL 10 MG/ML VIAL ONE (14:45)
[2020-10-11] MEDS ORDERED: Heparin 2 UNITS/ML IVPREMIX 2,000 UNIT/1,000 ML BAG IV ONE (14:45)
[2020-10-11] MEDS ORDERED: Heparin 1,000 UNIT/ML 10 ml (10,000 UNITS) CATHLAB/DIALYSIS ONE (14:55)
[2020-10-11] MEDS ORDERED: Heparin 2 UNITS/ML IVPREMIX 1,000 UNIT/500 ML BAG IV ONE (15:01)
[2020-10-11] MEDS ORDERED: fentaNYL 100 mcg/2 ml 50 MCG/ML VIAL IV PRN (15:44)
[2020-10-11] MEDS ORDERED: Naloxone 0.4 mg VIAL 0.4 mg/ml 1 ml VIAL IV PRN (15:44)
[2020-10-11] MEDS ORDERED: Ondansetron 4 mg VIAL 2 MG/ML 2 ml VIAL IV PRN (15:44)
[2020-10-11] MEDS ORDERED: Acetaminophen IV 1 GM/100ML 100 ML IV PRN (15:44)
[2020-10-11] MEDS ORDERED: nitroGLYCERIN DRIP 25,000 MCG/250 ML BTL ONE (16:28)
[2020-10-11] MEDS ORDERED: Phenylephrine 40 mcg/mL 10mL (400mcg) SYRINGE ONE (17:47)
[2020-10-11] MEDS ORDERED: Lidocaine 2% PF 5 ML VIAL ONE (17:47)
[2020-10-11] MEDS ORDERED: Propofol 1,000 MG/100 ML BTL ONE (17:47)
[2020-10-11] MEDS ORDERED: Glycopyrrolate IV 0.2 MG/ML 1 ML VIAL ONE (17:48)
[2020-10-11] MEDS: Insulin GLARGINE 100 un/ml 10 ml VIAL SUBCUT SCH (21:25)
[2020-10-12 05:37] LABS: Calcium 9.4 mg/dL (8.6-10.3); EGFR African American 61.8 (>60); EGFR Non-African American 51.1 (>60); Magnesium 1.8 mg/dL (1.9-2.7)
[2020-10-12] MEDS ORDERED: Magnesium Sulfate 2 gm BAG 2 GM/50 ML BAG IVPB ONE (08:24)
[2020-10-12] MEDS: Collagenase 250 units/gm OINT 1 tube TOPICAL SCH (11:23)
[2020-10-12] MEDS: Insulin GLARGINE 100 un/ml 10 ml VIAL SUBCUT SCH (21:44)
[2020-10-13] MEDS: Collagenase 250 units/gm OINT 1 tube TOPICAL SCH (11:00)
[2020-10-13 11:57] VITALS: BP 95/48
== END 2020-10-13 16:30 | DRG 673 ==
LOC: ED 16:58 → MED 22:21
PROVIDERS: ADMIT Internal Medicine; ATTEND Hospitalist
PROC: ANG.PRO (2020-10-11 13:45)

== ENCOUNTER 2020-11-04 15:55 | Inpatient (IN) ==
[2020-11-04 17:37] LABS: ABS Basophils 0.1 10^3/ul (0-0.2); ABS Eosinophils 0.4 10^3/ul (0-0.6); ABS Lymphocytes 1.2 10^3/ul (1.0-4.8); ABS Neutrophils 9.1 10^3/ul (1.5-7.7); Eosinophil % 3.5 %; Hematocrit 34 % (42-52); Mean Corpuscular HGB Conc 33 g/dL (31-36); Mean Corpuscular Hemoglobin 29 pg (27-31); Mean Corpuscular Volume 89 fL (80-94); Mean Platelet Volume 6.7 fL (7.4-10.4); Platelet Count 336 10^3/uL (150-450); Red Blood Count 3.79 10^6 /uL (4.18-5.48); Red Cell Distribution Width 18 % (10-15); White Blood Count 11.8 10^3/uL (3.5-10.8)
[2020-11-04 17:45] LABS: INR 1.28 (0.86-1.15)
[2020-11-04 17:57] LABS: Albumin 3.5 g/dL (3.2-5.2); Albumin/Globulin Ratio 0.8 (1-3); C Reactive Protein 159.75 mg/L (<8.01); EGFR African American 60.3 (>60); EGFR Non-African American 49.8 (>60); Globulin 4.3 g/dL (2-4); Magnesium 1.8 mg/dL (1.9-2.7); Potassium 4.4 mmol/L (3.5-5.0); Total Bilirubin 0.4 mg/dL (0.2-1.0); Total Protein 7.8 g/dL (6.4-8.9)
[2020-11-04] MEDS ORDERED: NS 0.9% 1000 ml BAG 1,000 ML IV ONE (18:11)
[2020-11-04] MEDS ORDERED: Vancomycin 1,000 MG in NS 0.9% 250 ml 250 ML IVPB ONE (22:16)
[2020-11-04] MEDS ORDERED: Albuterol HFA INHALER 8 gm MDI INH PRN (22:20)
[2020-11-04] MEDS ORDERED: Vancomycin per Pharmacy 1 EA NOTE FOLLOW UP SCH (23:00)
[2020-11-04] MEDS: Vancomycin 1,000 MG in NS 0.9% 250 ml 250 ML IVPB SCH (23:23)
[2020-11-04] MEDS ORDERED: Magnesium Sulfate 2 gm BAG 2 GM/50 ML BAG IVPB ONE (23:41)
[2020-11-05] MEDS ORDERED: Dextrose 50% Syringe 50 ml 25 GM/50 ML SYRINGE IV PUSH PRN (00:02)
[2020-11-05] MEDS ORDERED: Cefepime 2 GM IV - ED ONCE IV ONE (00:30)
[2020-11-05 05:50] LABS: ABS Basophils 0.1 10^3/ul (0-0.2); ABS Eosinophils 0.3 10^3/ul (0-0.6); ABS Lymphocytes 1.1 10^3/ul (1.0-4.8); ABS Monocytes 0.9 10^3/ul (0-0.8); ABS Neutrophils 8.7 10^3/ul (1.5-7.7); Eosinophil % 2.6 %; Hematocrit 33 % (42-52); Hemoglobin 10.6 g/dL (14.0-18.0); Lymphocyte % 9.8 %; Mean Corpuscular HGB Conc 33 g/dL (31-36); Mean Corpuscular Hemoglobin 29 pg (27-31); Mean Corpuscular Volume 90 fL (80-94); Mean Platelet Volume 6.5 fL (7.4-10.4); Platelet Count 309 10^3/uL (150-450); Red Blood Count 3.64 10^6 /uL (4.18-5.48); Red Cell Distribution Width 18 % (10-15)
[2020-11-05 06:05] LABS: Calcium 9.4 mg/dL (8.6-10.3); EGFR African American 68.8 (>60); EGFR Non-African American 56.8 (>60); Potassium 4.1 mmol/L (3.5-5.0)
[2020-11-05] MEDS ORDERED: Heparin 5000 UNITS/ML 1 mL VIAL SUBCUT SCH (09:00)
[2020-11-05] MEDS: Multivitamins/Minerals TAB PO SCH (11:07)
[2020-11-05] MEDS: Insulin GLARGINE 100 un/ml 10 ml VIAL SUBCUT SCH ×2 (11:09→21:07)
[2020-11-05] MEDS: Vancomycin 1,000 MG in NS 0.9% 250 ml 250 ML IVPB SCH (11:58)
[2020-11-05] MEDS: Cefepime 2 GM in Dextrose 2 GM/50 ML BAG IV SCH (17:55)
[2020-11-06] MEDS: Cefepime 2 GM in Dextrose 2 GM/50 ML BAG IV SCH (05:37)
[2020-11-06] MEDS ORDERED: Vancomycin Random Level NOTE FOLLOW UP ONE (06:00)
[2020-11-06 07:04] LABS: ABS Basophils 0.1 10^3/ul (0-0.2); ABS Eosinophils 0.4 10^3/ul (0-0.6); ABS Lymphocytes 1.3 10^3/ul (1.0-4.8); ABS Monocytes 0.9 10^3/ul (0-0.8); Eosinophil % 3.7 %; Hematocrit 29 % (42-52); Hemoglobin 9.7 g/dL (14.0-18.0); Mean Corpuscular HGB Conc 34 g/dL (31-36); Mean Corpuscular Hemoglobin 30 pg (27-31); Mean Corpuscular Volume 88 fL (80-94); Mean Platelet Volume 6.7 fL (7.4-10.4); Platelet Count 274 10^3/uL (150-450); Red Blood Count 3.25 10^6 /uL (4.18-5.48); Red Cell Distribution Width 18 % (10-15); White Blood Count 9.6 10^3/uL (3.5-10.8)
[2020-11-06 07:23] LABS: Calcium 9.3 mg/dL (8.6-10.3); EGFR African American 66.9 (>60); EGFR Non-African American 55.3 (>60); Potassium 3.7 mmol/L (3.5-5.0)
[2020-11-06] MEDS: Insulin GLARGINE 100 un/ml 10 ml VIAL SUBCUT SCH ×2 (08:32→21:55)
[2020-11-06] MEDS: Multivitamins/Minerals TAB PO SCH (08:33)
[2020-11-06] MEDS ORDERED: Vancomycin 1000 MG in NS 0.9% 250 ML IVPB SCH (09:00)
[2020-11-06] MEDS: Vancomycin 750 MG in NS 0.9% 250 ml 250 ML IVPB SCH ×2 (09:26→22:10)
[2020-11-06] MEDS ORDERED: cefTRIAXone 1 gm/50 mL NS BAG 1 GM/50 ML BAG IVPB SCH (18:00)
[2020-11-07 07:00] LABS: ABS Basophils 0.1 10^3/ul (0-0.2); ABS Eosinophils 0.5 10^3/ul (0-0.6); ABS Monocytes 0.8 10^3/ul (0-0.8); Eosinophil % 5.1 %; Hematocrit 31 % (42-52); Hemoglobin 10.1 g/dL (14.0-18.0); Lymphocyte % 10.8 %; Mean Corpuscular HGB Conc 33 g/dL (31-36); Mean Corpuscular Hemoglobin 29 pg (27-31); Mean Corpuscular Volume 89 fL (80-94); Mean Platelet Volume 6.4 fL (7.4-10.4); Platelet Count 287 10^3/uL (150-450); Red Blood Count 3.45 10^6 /uL (4.18-5.48); Red Cell Distribution Width 17 % (10-15); White Blood Count 9.4 10^3/uL (3.5-10.8)
[2020-11-07 07:18] LABS: Calcium 9.2 mg/dL (8.6-10.3); EGFR African American 82.4 (>60); EGFR Non-African American 68.1 (>60); Potassium 3.7 mmol/L (3.5-5.0)
[2020-11-07] MEDS: Vancomycin 750 MG in NS 0.9% 250 ml 250 ML IVPB SCH ×2 (09:01→22:34)
[2020-11-07] MEDS: Multivitamins/Minerals TAB PO SCH (09:01)
[2020-11-07] MEDS: Insulin GLARGINE 100 un/ml 10 ml VIAL SUBCUT SCH ×2 (09:03→22:35)
[2020-11-07] MEDS ORDERED: Lactated Ringers 1000 ml BAG 1,000 ML IV ONE (14:11)
[2020-11-07] MEDS ORDERED: Senna TAB 8.6 mg TAB PO PRN (14:12)
[2020-11-07] MEDS ORDERED: Magnesium Hydroxide LIQ 30 ML UDC PO PRN (14:12)
[2020-11-07 19:12] LABS: ABS Basophils 0.1 10^3/ul (0-0.2); ABS Eosinophils 0.6 10^3/ul (0-0.6); ABS Monocytes 0.8 10^3/ul (0-0.8); ABS Neutrophils 7.7 10^3/ul (1.5-7.7); Eosinophil % 5.7 %; Hematocrit 30 % (42-52); Hemoglobin 9.5 g/dL (14.0-18.0); Lymphocyte % 10.2 %; Mean Corpuscular HGB Conc 32 g/dL (31-36); Mean Corpuscular Hemoglobin 29 pg (27-31); Mean Corpuscular Volume 91 fL (80-94); Mean Platelet Volume 6.4 fL (7.4-10.4); Platelet Count 286 10^3/uL (150-450); Red Blood Count 3.28 10^6 /uL (4.18-5.48); Red Cell Distribution Width 18 % (10-15); White Blood Count 10.2 10^3/uL (3.5-10.8)
[2020-11-07 19:42] LABS: Albumin/Globulin Ratio 0.8 (1-3); Calcium 9.3 mg/dL (8.6-10.3); EGFR African American 81.5 (>60); EGFR Non-African American 67.4 (>60); Globulin 3.7 g/dL (2-4); Total Bilirubin 0.2 mg/dL (0.2-1.0); Total Protein 6.7 g/dL (6.4-8.9)
[2020-11-08 06:02] LABS: ABS Basophils 0.1 10^3/ul (0-0.2); ABS Eosinophils 0.6 10^3/ul (0-0.6); ABS Lymphocytes 1.3 10^3/ul (1.0-4.8); ABS Monocytes 0.8 10^3/ul (0-0.8); ABS Neutrophils 6.5 10^3/ul (1.5-7.7); Eosinophil % 6.3 %; Hematocrit 30 % (42-52); Hemoglobin 9.7 g/dL (14.0-18.0); Lymphocyte % 14.1 %; Mean Corpuscular HGB Conc 33 g/dL (31-36); Mean Corpuscular Hemoglobin 30 pg (27-31); Mean Corpuscular Volume 90 fL (80-94); Mean Platelet Volume 6.3 fL (7.4-10.4); Platelet Count 298 10^3/uL (150-450); Red Blood Count 3.29 10^6 /uL (4.18-5.48); Red Cell Distribution Width 18 % (10-15); White Blood Count 9.2 10^3/uL (3.5-10.8)
[2020-11-08 06:37] LABS: Vancomycin Trough 21.3 mcg/mL
[2020-11-08 06:39] LABS: EGFR Non-African American 80.2 (>60)
[2020-11-08] MEDS ORDERED: Vancomycin Trough Check NOTE FOLLOW UP ONE (08:30)
[2020-11-08] MEDS: Vancomycin 750 MG in NS 0.9% 250 ml 250 ML IVPB SCH (08:51)
[2020-11-08] MEDS: Insulin GLARGINE 100 un/ml 10 ml VIAL SUBCUT SCH ×2 (09:33→21:39)
[2020-11-08] MEDS: Multivitamins/Minerals TAB PO SCH (09:35)
[2020-11-08] MEDS: Collagenase 250 units/gm OINT 1 tube TOPICAL SCH (10:35)
[2020-11-08] MEDS: Vancomycin 500 MG in NS 0.9% 250 ML IVPB SCH (17:25)
[2020-11-09] MEDS: Vancomycin 500 MG in NS 0.9% 250 ML IVPB SCH ×2 (06:20→17:23)
[2020-11-09] MEDS: Multivitamins/Minerals TAB PO SCH (10:17)
[2020-11-09] MEDS: Insulin GLARGINE 100 un/ml 10 ml VIAL SUBCUT SCH ×2 (10:17→21:20)
[2020-11-09] MEDS: Collagenase 250 units/gm OINT 1 tube TOPICAL SCH (10:30)
[2020-11-10] MEDS ORDERED: Vancomycin Trough Check NOTE FOLLOW UP ONE (05:30)
[2020-11-10 06:36] LABS: EGFR African American 87.1 (>60)
[2020-11-10] MEDS: Vancomycin 500 MG in NS 0.9% 250 ML IVPB SCH ×2 (07:38→17:46)
[2020-11-10] MEDS: Multivitamins/Minerals TAB PO SCH (08:34)
[2020-11-10] MEDS: Insulin GLARGINE 100 un/ml 10 ml VIAL SUBCUT SCH (08:41)
[2020-11-10] MEDS: Collagenase 250 units/gm OINT 1 tube TOPICAL SCH (11:42)
[2020-11-10] MEDS ORDERED: Lactated Ringers 500 ml BAG 500 ML IV ONE (12:07)
[2020-11-10 12:42] LABS: ABS Basophils 0.1 10^3/ul (0-0.2); ABS Eosinophils 0.5 10^3/ul (0-0.6); ABS Lymphocytes 1.4 10^3/ul (1.0-4.8); ABS Monocytes 0.7 10^3/ul (0-0.8); ABS Neutrophils 5.5 10^3/ul (1.5-7.7); Eosinophil % 6.6 %; Hematocrit 29 % (42-52); Hemoglobin 9.4 g/dL (14.0-18.0); Lymphocyte % 17.1 %; Mean Corpuscular HGB Conc 33 g/dL (31-36); Mean Corpuscular Hemoglobin 29 pg (27-31); Mean Corpuscular Volume 89 fL (80-94); Mean Platelet Volume 6.1 fL (7.4-10.4); Platelet Count 313 10^3/uL (150-450); Red Blood Count 3.21 10^6 /uL (4.18-5.48); Red Cell Distribution Width 18 % (10-15); White Blood Count 8.2 10^3/uL (3.5-10.8)
[2020-11-10 13:00] LABS: Albumin 2.9 g/dL (3.2-5.2); Albumin/Globulin Ratio 0.8 (1-3); Calcium 8.9 mg/dL (8.6-10.3); EGFR African American 95.8 (>60); EGFR Non-African American 79.2 (>60); Globulin 3.6 g/dL (2-4); Total Bilirubin 0.3 mg/dL (0.2-1.0); Total Protein 6.5 g/dL (6.4-8.9)
[2020-11-10] MEDS ORDERED: Insulin GLARGINE 100 un/ml 10 ml VIAL SUBCUT SCH (21:00)
[2020-11-11] MEDS: Vancomycin 500 MG in NS 0.9% 250 ML IVPB SCH ×2 (06:35→17:27)
[2020-11-11] MEDS: Multivitamins/Minerals TAB PO SCH (09:25)
[2020-11-11] MEDS: Collagenase 250 units/gm OINT 1 tube TOPICAL SCH (12:00)
[2020-11-11] MEDS: Insulin GLARGINE 100 un/ml 10 ml VIAL SUBCUT SCH (22:44)
[2020-11-12] MEDS ORDERED: Vancomycin Trough Check NOTE FOLLOW UP ONE (05:30)
[2020-11-12 06:28] LABS: EGFR African American 86.2 (>60); EGFR Non-African American 71.2 (>60)
[2020-11-12 06:35] LABS: Vancomycin Trough 14.2 mcg/mL
[2020-11-12] MEDS: Vancomycin 500 MG in NS 0.9% 250 ML IVPB SCH ×2 (07:13→17:42)
[2020-11-12] MEDS: Multivitamins/Minerals TAB PO SCH (09:19)
[2020-11-12] MEDS: Miconazole TOPICAL CREAM 2% 30 GM TOPICAL SCH ×2 (09:22→22:32)
[2020-11-12] MEDS: Collagenase 250 units/gm OINT 1 tube TOPICAL SCH (09:22)
[2020-11-12] MEDS: Insulin GLARGINE 100 un/ml 10 ml VIAL SUBCUT SCH (22:30)
[2020-11-13] MEDS: Vancomycin 500 MG in NS 0.9% 250 ML IVPB SCH (05:36)
[2020-11-13 07:48] VITALS: BP 114/71
[2020-11-13] MEDS: Multivitamins/Minerals TAB PO SCH (09:00)
[2020-11-13] MEDS: Collagenase 250 units/gm OINT 1 tube TOPICAL SCH (09:02)
[2020-11-13] MEDS: Miconazole TOPICAL CREAM 2% 30 GM TOPICAL SCH (09:06)
== END 2020-11-13 11:50 | DRG 602 ==
LOC: ED 15:55 → SUATTDRO 21:32 → SSU 21:32
PROVIDERS: ADMIT Internal Medicine; ATTEND Internal Medicine

== ENCOUNTER 2020-12-19 15:28 | Inpatient (IN) ==
[2020-12-19] MEDS ORDERED: Lactated Ringers 1000 ml BAG 1,000 ML IV ONE (15:53)
[2020-12-19] MEDS ORDERED: Piperacillin/Tazobac ADVAN 3.375 GM in NS 0.9% 100 ml BAG 100 ML IV ONE (15:57)
[2020-12-19 16:54] LABS: Urine Appearance Clear; Urine Bilirubin Negative (Negative); Urine Blood Negative (Negative); Urine Color Yellow; Urine Glucose Negative (Negative); Urine Ketones Negative (Negative); Urine Nitrite Negative (Negative); Urine Protein 1+(30 mg/dL) (Negative); Urine Specific Gravity 1.018 (1.002-1.030); Urine Urobilinogen Negative (Negative)
[2020-12-19 16:55] LABS: ABS Basophils 0.1 10^3/ul (0-0.2); ABS Eosinophils 0.1 10^3/ul (0-0.6); ABS Lymphocytes 0.6 10^3/ul (1.0-4.8); ABS Monocytes 0.8 10^3/ul (0-0.8); ABS Neutrophils 16.5 10^3/ul (1.5-7.7); Eosinophil % 0.4 %; Hematocrit 30 % (42-52); Hemoglobin 9.7 g/dL (14.0-18.0); Lymphocyte % 3.2 %; Mean Corpuscular HGB Conc 32 g/dL (31-36); Mean Corpuscular Hemoglobin 29 pg (27-31); Mean Corpuscular Volume 89 fL (80-94); Mean Platelet Volume 6.7 fL (7.4-10.4); Platelet Count 302 10^3/uL (150-450); Red Blood Count 3.35 10^6 /uL (4.18-5.48); Red Cell Distribution Width 17 % (10-15)
[2020-12-19 16:56] LABS: Urine Bacteria Absent (Absent); Urine Red Blood Cell Trace(0-2/hpf) (Absent); Urine Squamous Epithelial Cell Present (Absent); Urine White Blood Cell Trace(0-5/hpf) (Absent)
[2020-12-19 17:14] LABS: Troponin I 0.01 ng/mL (<0.03)
[2020-12-19] MEDS ORDERED: Vancomycin 1,000 MG in NS 0.9% 250 ml 250 ML IVPB ONE (17:21)
[2020-12-19 17:25] LABS: Activated Partial Thrombo Time 33.7 seconds (26.0-38.0); INR 1.81 (0.86-1.15)
[2020-12-19 17:29] LABS: Albumin 3.2 g/dL (3.2-5.2); Albumin/Globulin Ratio 0.8 (1-3); C Reactive Protein 92.62 mg/L (<8.01); Calcium 9.6 mg/dL (8.6-10.3); EGFR African American 72.8 (>60); EGFR Non-African American 60.2 (>60); Globulin 3.8 g/dL (2-4); Potassium 4.7 mmol/L (3.5-5.0); Total Bilirubin 0.3 mg/dL (0.2-1.0)
[2020-12-19] MEDS ORDERED: Norepinephrine 16MCG/ML IVPRE 4,000 MCG/250 ML BAG IV ONE (18:05)
[2020-12-19] MEDS ORDERED: Iodixanol (CONTRAST) 320 MG/ML 100 ML SDV IV ONE (18:27)
[2020-12-19 20:31] LABS: PCO2 Arterial 40 mmHg (35-45); PO2 Arterial 87 mmHg (80-100)
[2020-12-19 20:56] LABS: Magnesium 1.5 mg/dL (1.9-2.7)
[2020-12-19] MEDS ORDERED: Vancomycin per Pharmacy 1 EA NOTE FOLLOW UP SCH (21:00)
[2020-12-19] MEDS ORDERED: Zosyn per Pharmacy NOTE FOLLOW UP SCH (21:00)
[2020-12-19] MEDS ORDERED: Vancomycin 1000 MG in NS 0.9% 250 ML IVPB ONE (21:45)
[2020-12-19] MEDS ORDERED: Magnesium Sulf 4 GM/100 ML IV 4,000 MG/100 ML BAG IVPB ONE (22:00)
[2020-12-19] MEDS ORDERED: Sodium Phosphate IV 15 MMOLE in NS 0.9% 250 ml 250 ML IV ONE (22:30)
[2020-12-19] MEDS: Acetaminophen IV 1 GM/100ML 100 ML IV PRN (22:40)
[2020-12-19] MEDS ORDERED: Albuterol HFA INHALER 8 gm MDI INH PRN (23:58)
[2020-12-19] MEDS ORDERED: Magnesium Hydroxide LIQ 30 ML UDC PO PRN (23:58)
[2020-12-20] MEDS ORDERED: Hydrocortisone INJ 100 MG/2ML 2 ML VIAL IV ONE (00:51)
[2020-12-20] MEDS: ZOSYN 3.375 GM Q8H per EXTENDED INFUSION IV SCH ×2 (01:00→06:53)
[2020-12-20 01:29] LABS: Erythrocyte Sed Rate 100 mm/Hr (0-19)
[2020-12-20] MEDS: Norepinephrine 16MCG/ML IVPRE 4,000 MCG/250 ML BAG IV SCH ×5 (01:40→18:28)
[2020-12-20 05:49] LABS: Hematocrit 29 % (42-52); Hemoglobin 9.4 g/dL (14.0-18.0); Mean Corpuscular HGB Conc 32 g/dL (31-36); Mean Corpuscular Hemoglobin 29 pg (27-31); Mean Corpuscular Volume 89 fL (80-94); Mean Platelet Volume 6.6 fL (7.4-10.4); Platelet Count 355 10^3/uL (150-450); Red Blood Count 3.27 10^6 /uL (4.18-5.48); Red Cell Distribution Width 17 % (10-15); White Blood Count 21.1 10^3/uL (3.5-10.8)
[2020-12-20 06:11] LABS: ABS Basophils 0.1 10^3/ul (0-0.2); ABS Lymphocytes 0.3 10^3/ul (1.0-4.8); ABS Monocytes 0.4 10^3/ul (0-0.8); ABS Neutrophils 20.4 10^3/ul (1.5-7.7); Lymphocyte % 1.5 %
[2020-12-20 06:16] LABS: Calcium 8.9 mg/dL (8.6-10.3); EGFR African American 66.9 (>60); EGFR Non-African American 55.3 (>60); Magnesium 2.7 mg/dL (1.9-2.7); Phosphorus 3.8 mg/dL (2.5-5.0); Potassium 4.3 mmol/L (3.5-5.0)
[2020-12-20] MEDS: Cholecalciferol (VIT D3) 1,000 unit TAB PO SCH (07:54)
[2020-12-20] MEDS: Pantoprazole VIAL 40 MG VIAL IV SCH (07:54)
[2020-12-20] MEDS: Acetaminophen IV 1 GM/100ML 100 ML IV PRN (09:11)
[2020-12-20] MEDS: Hydrocortisone INJ 100 MG/2ML 2 ML VIAL IV SCH ×2 (10:13→17:52)
[2020-12-20] MEDS: Collagenase 250 units/gm OINT 1 tube TOPICAL SCH (10:14)
[2020-12-20] MEDS: Vancomycin 500 MG in NS 0.9% 250 ML IVPB SCH ×2 (12:45→23:55)
[2020-12-20 14:28] LABS: Influenza A Molecular Negative (Negative); Influenza B Molecular Negative (Negative)
[2020-12-20] MEDS ORDERED: Dextrose 50% Syringe 50 ml 25 GM/50 ML SYRINGE IV PUSH PRN (17:22)
[2020-12-20] MEDS: Saline FLUSH-CENTRAL 10 ML SYRINGE CENT\\PICC SCH (19:38)
[2020-12-20] MEDS: Cefepime 2 GM in Dextrose 2 GM/50 ML BAG IV SCH (20:58)
[2020-12-20] MEDS: Insulin GLARGINE 100 un/ml 10 ml VIAL SUBCUT SCH (20:59)
[2020-12-21] MEDS: Hydrocortisone INJ 100 MG/2ML 2 ML VIAL IV SCH ×3 (03:15→18:23)
[2020-12-21 04:56] LABS: ABS Lymphocytes 0.6 10^3/ul (1.0-4.8); ABS Monocytes 0.8 10^3/ul (0-0.8); ABS Neutrophils 9.8 10^3/ul (1.5-7.7); Eosinophil % 0.2 %; Hematocrit 26 % (42-52); Hemoglobin 8.3 g/dL (14.0-18.0); Mean Corpuscular HGB Conc 32 g/dL (31-36); Mean Corpuscular Hemoglobin 28 pg (27-31); Mean Corpuscular Volume 89 fL (80-94); Platelet Count 289 10^3/uL (150-450); Red Blood Count 2.94 10^6 /uL (4.18-5.48); Red Cell Distribution Width 17 % (10-15); White Blood Count 11.2 10^3/uL (3.5-10.8)
[2020-12-21 05:04] LABS: Activated Partial Thrombo Time 33.3 seconds (26.0-38.0); INR 1.78 (0.86-1.15)
[2020-12-21 05:21] LABS: Calcium 8.4 mg/dL (8.6-10.3); EGFR African American 79.8 (>60); EGFR Non-African American 65.9 (>60); Potassium 3.4 mmol/L (3.5-5.0)
[2020-12-21] MEDS ORDERED: Potassium Chlor 20 meq TAB.ER PO ONE (06:10)
[2020-12-21] MEDS: Norepinephrine 16MCG/ML IVPRE 4,000 MCG/250 ML BAG IV SCH (07:15)
[2020-12-21] MEDS: Cholecalciferol (VIT D3) 1,000 unit TAB PO SCH (07:59)
[2020-12-21] MEDS: Saline FLUSH-CENTRAL 10 ML SYRINGE CENT\\PICC SCH ×2 (08:01→19:07)
[2020-12-21] MEDS: Pantoprazole VIAL 40 MG VIAL IV SCH (08:01)
[2020-12-21] MEDS: Collagenase 250 units/gm OINT 1 tube TOPICAL SCH (08:01)
[2020-12-21] MEDS: KCL 20 MEQ/100 ML IVPREMIX 20 MEQ/100 ML BAG IV SCH ×2 (08:02→11:30)
[2020-12-21] MEDS: Cefepime 2 GM in Dextrose 2 GM/50 ML BAG IV SCH ×2 (08:03→20:26)
[2020-12-21] MEDS: Insulin GLARGINE 100 un/ml 10 ml VIAL SUBCUT SCH ×2 (08:24→20:27)
[2020-12-21] MEDS ORDERED: Norepinephrine 16MCG/ML IVPRE 4,000 MCG/250 ML BAG IV SCH (10:00)
[2020-12-21] MEDS ORDERED: Vancomycin Trough Check NOTE FOLLOW UP ONE (11:00)
[2020-12-21] MEDS: Vancomycin 500 MG in NS 0.9% 250 ML IVPB SCH ×2 (14:49→22:49)
[2020-12-22] MEDS: Hydrocortisone INJ 100 MG/2ML 2 ML VIAL IV SCH (01:35)
[2020-12-22 04:17] LABS: ABS Lymphocytes 0.6 10^3/ul (1.0-4.8); ABS Monocytes 0.4 10^3/ul (0-0.8); ABS Neutrophils 7.4 10^3/ul (1.5-7.7); Eosinophil % 0.3 %; Hematocrit 26 % (42-52); Hemoglobin 8.5 g/dL (14.0-18.0); Lymphocyte % 7.3 %; Mean Corpuscular HGB Conc 32 g/dL (31-36); Mean Corpuscular Hemoglobin 29 pg (27-31); Mean Corpuscular Volume 90 fL (80-94); Mean Platelet Volume 6.5 fL (7.4-10.4); Nucleated Red Blood Cells % 0.1; Platelet Count 253 10^3/uL (150-450); Red Blood Count 2.94 10^6 /uL (4.18-5.48); Red Cell Distribution Width 17 % (10-15); White Blood Count 8.4 10^3/uL (3.5-10.8)
[2020-12-22 04:22] LABS: INR 1.54 (0.86-1.15)
[2020-12-22 04:37] LABS: Calcium 8.5 mg/dL (8.6-10.3); EGFR Non-African American 65.3 (>60); Magnesium 1.8 mg/dL (1.9-2.7); Phosphorus 1.4 mg/dL (2.5-5.0)
[2020-12-22] MEDS: Cholecalciferol (VIT D3) 1,000 unit TAB PO SCH (07:35)
[2020-12-22] MEDS: Pantoprazole VIAL 40 MG VIAL IV SCH (07:36)
[2020-12-22] MEDS: Cefepime 2 GM in Dextrose 2 GM/50 ML BAG IV SCH ×2 (07:37→21:29)
[2020-12-22] MEDS ORDERED: Magnesium Sulfate 2 gm BAG 2 GM/50 ML BAG IVPB ONE (07:42)
[2020-12-22] MEDS ORDERED: Potassium Phosphate IV 15 MMOLE in NS 0.9% 250 ml 250 ML IVPB ONE (07:42)
[2020-12-22] MEDS: Saline FLUSH-CENTRAL 10 ML SYRINGE CENT\\PICC SCH ×2 (07:48→21:29)
[2020-12-22] MEDS: Insulin GLARGINE 100 un/ml 10 ml VIAL SUBCUT SCH ×2 (09:10→21:39)
[2020-12-22] MEDS: Collagenase 250 units/gm OINT 1 tube TOPICAL SCH ×2 (12:08→12:47)
[2020-12-22] MEDS: Vancomycin 500 MG in NS 0.9% 250 ML IVPB SCH ×2 (12:08→23:46)
[2020-12-22 17:02] LABS: Adenovirus Undetected (Undetected); Bordetella parapertussis Undetected (Undetected); Bordetella pertussis Undetected (Undetected); Chlamydophila pneumoniae Undetected (Undetected); Coronavirus 229E Undetected (Undetected); Coronavirus HKU1 Undetected (Undetected); Coronavirus NL63 Undetected (Undetected); Coronavirus OC43 Undetected (Undetected); Human Metapneumovirus Undetected (Undetected); Human Rhinovirus/Enterovirus Undetected (Undetected); Influenza A Undetected (Undetected); Influenza B Undetected (Undetected); Mycoplasmoides pneumoniae Undetected (Undetected); Parainfluenza Virus 1 Undetected (Undetected); Parainfluenza Virus 2 Undetected (Undetected); Parainfluenza Virus 3 Undetected (Undetected); Parainfluenza Virus 4 Undetected (Undetected); Respiratory Syncytial Virus Undetected (Undetected); Specimen Source NASOPHARYNGEAL SWAB
[2020-12-23 04:15] LABS: ABS Basophils 0.1 10^3/ul (0-0.2); ABS Eosinophils 0.4 10^3/ul (0-0.6); ABS Lymphocytes 1.2 10^3/ul (1.0-4.8); ABS Monocytes 0.6 10^3/ul (0-0.8); ABS Neutrophils 6.8 10^3/ul (1.5-7.7); Hematocrit 27 % (42-52); Hemoglobin 8.8 g/dL (14.0-18.0); Lymphocyte % 12.8 %; Mean Corpuscular HGB Conc 32 g/dL (31-36); Mean Corpuscular Hemoglobin 29 pg (27-31); Mean Corpuscular Volume 90 fL (80-94); Mean Platelet Volume 6.7 fL (7.4-10.4); Nucleated Red Blood Cells % 0.1; Platelet Count 250 10^3/uL (150-450); Red Blood Count 3.06 10^6 /uL (4.18-5.48); Red Cell Distribution Width 17 % (10-15)
[2020-12-23 04:19] LABS: INR 1.41 (0.86-1.15)
[2020-12-23 04:34] LABS: Calcium 8.3 mg/dL (8.6-10.3); EGFR African American 91.3 (>60); EGFR Non-African American 75.5 (>60); Magnesium 1.8 mg/dL (1.9-2.7); Phosphorus 1.5 mg/dL (2.5-5.0); Potassium 3.8 mmol/L (3.5-5.0)
[2020-12-23] MEDS: Saline FLUSH-CENTRAL 10 ML SYRINGE CENT\\PICC SCH ×2 (08:27→21:20)
[2020-12-23] MEDS: Cholecalciferol (VIT D3) 1,000 unit TAB PO SCH (08:27)
[2020-12-23] MEDS ORDERED: Magnesium Sulfate IV 3 GM in NS 0.9% 100 ml BAG 100 ML IVPB ONE (08:30)
[2020-12-23] MEDS: Collagenase 250 units/gm OINT 1 tube TOPICAL SCH (08:31)
[2020-12-23] MEDS: Pantoprazole VIAL 40 MG VIAL IV SCH (08:31)
[2020-12-23] MEDS ORDERED: Potassium Phosphate IV 15 MMOLE in NS 0.9% 250 ml 250 ML IVPB ONE (09:00)
[2020-12-23] MEDS: Insulin GLARGINE 100 un/ml 10 ml VIAL SUBCUT SCH ×2 (09:18→21:37)
[2020-12-23] MEDS: Cefepime 2 GM in Dextrose 2 GM/50 ML BAG IV SCH ×2 (10:39→21:21)
[2020-12-23] MEDS: Vancomycin 500 MG in NS 0.9% 250 ML IVPB SCH ×2 (11:50→22:58)
[2020-12-23] MEDS ORDERED: Dextrose 50% Syringe 50 ml 25 GM/50 ML SYRINGE IV PUSH PRN (12:14)
[2020-12-24 03:07] LABS: ABS Basophils 0.1 10^3/ul (0-0.2); ABS Eosinophils 0.5 10^3/ul (0-0.6); ABS Lymphocytes 1.2 10^3/ul (1.0-4.8); ABS Monocytes 0.7 10^3/ul (0-0.8); ABS Neutrophils 5.6 10^3/ul (1.5-7.7); Eosinophil % 6.3 %; Hematocrit 26 % (42-52); Hemoglobin 8.5 g/dL (14.0-18.0); Lymphocyte % 14.8 %; Mean Corpuscular HGB Conc 33 g/dL (31-36); Mean Corpuscular Hemoglobin 29 pg (27-31); Mean Corpuscular Volume 88 fL (80-94); Mean Platelet Volume 6.5 fL (7.4-10.4); Nucleated Red Blood Cells % 0.1; Platelet Count 259 10^3/uL (150-450); Red Blood Count 2.91 10^6 /uL (4.18-5.48); Red Cell Distribution Width 17 % (10-15)
[2020-12-24 04:15] LABS: Folate 4.8 ng/mL (5.90-24.80)
[2020-12-24 05:18] LABS: EGFR African American 92.4 (>60); EGFR Non-African American 76.4 (>60); Potassium 4.2 mmol/L (3.5-5.0)
[2020-12-24] MEDS: Cholecalciferol (VIT D3) 1,000 unit TAB PO SCH (08:58)
[2020-12-24] MEDS: Collagenase 250 units/gm OINT 1 tube TOPICAL SCH (09:01)
[2020-12-24] MEDS: Insulin GLARGINE 100 un/ml 10 ml VIAL SUBCUT SCH ×2 (09:01→21:36)
[2020-12-24] MEDS: Saline FLUSH-CENTRAL 10 ML SYRINGE CENT\\PICC SCH ×2 (09:06→20:48)
[2020-12-24] MEDS: Cefepime 2 GM in Dextrose 2 GM/50 ML BAG IV SCH ×2 (10:23→20:48)
[2020-12-24] MEDS: Vancomycin 500 MG in NS 0.9% 250 ML IVPB SCH ×2 (11:24→23:07)
[2020-12-25 04:00] LABS: ABS Basophils 0.1 10^3/ul (0-0.2); ABS Eosinophils 0.6 10^3/ul (0-0.6); ABS Lymphocytes 1.5 10^3/ul (1.0-4.8); ABS Monocytes 0.8 10^3/ul (0-0.8); ABS Neutrophils 7.1 10^3/ul (1.5-7.7); Eosinophil % 6.2 %; Hematocrit 27 % (42-52); Hemoglobin 8.8 g/dL (14.0-18.0); Lymphocyte % 15.1 %; Mean Corpuscular HGB Conc 33 g/dL (31-36); Mean Corpuscular Hemoglobin 29 pg (27-31); Mean Corpuscular Volume 89 fL (80-94); Mean Platelet Volume 6.8 fL (7.4-10.4); Nucleated Red Blood Cells % 0.1; Platelet Count 269 10^3/uL (150-450); Red Blood Count 2.99 10^6 /uL (4.18-5.48); Red Cell Distribution Width 17 % (10-15); White Blood Count 10.1 10^3/uL (3.5-10.8)
[2020-12-25 04:14] LABS: Calcium 8.6 mg/dL (8.6-10.3); EGFR African American 90.2 (>60); EGFR Non-African American 74.6 (>60); Magnesium 1.6 mg/dL (1.9-2.7); Potassium 3.9 mmol/L (3.5-5.0)
[2020-12-25] MEDS ORDERED: Magnesium Sulfate 2 gm BAG 2 GM/50 ML BAG IVPB ONE (07:00)
[2020-12-25] MEDS: Saline FLUSH-CENTRAL 10 ML SYRINGE CENT\\PICC SCH ×2 (08:06→21:29)
[2020-12-25] MEDS: Cholecalciferol (VIT D3) 1,000 unit TAB PO SCH (08:06)
[2020-12-25] MEDS: Collagenase 250 units/gm OINT 1 tube TOPICAL SCH (08:06)
[2020-12-25 08:20] LABS: C Reactive Protein 72.99 mg/L (<8.01)
[2020-12-25] MEDS: Insulin GLARGINE 100 un/ml 10 ml VIAL SUBCUT SCH ×2 (08:28→20:55)
[2020-12-25] MEDS: Cefepime 2 GM in Dextrose 2 GM/50 ML BAG IV SCH ×2 (09:28→21:07)
[2020-12-25] MEDS ORDERED: Vancomycin Trough Check NOTE FOLLOW UP ONE (11:00)
[2020-12-25] MEDS ORDERED: Clotrimazole 1% CREAM 30 gm TOPICAL SCH (15:00)
[2020-12-25] MEDS: Vancomycin 500 MG in NS 0.9% 250 ML IVPB SCH (15:16)
[2020-12-26] MEDS: Vancomycin 500 MG in NS 0.9% 250 ML IVPB SCH ×3 (01:18→23:04)
[2020-12-26] MEDS ORDERED: Alteplase (CATHFLO) 2 MG VIAL IV ONE (04:38)
[2020-12-26] MEDS: Alteplase (CATHFLO) 2 MG VIAL IV ONE ×2 (06:32→07:55)
[2020-12-26] MEDS: Collagenase 250 units/gm OINT 1 tube TOPICAL SCH ×2 (06:37→09:07)
[2020-12-26 06:50] LABS: Hematocrit 28 % (42-52); Hemoglobin 9.2 g/dL (14.0-18.0); Mean Corpuscular HGB Conc 33 g/dL (31-36); Mean Corpuscular Hemoglobin 29 pg (27-31); Mean Corpuscular Volume 89 fL (80-94); Mean Platelet Volume 6.6 fL (7.4-10.4); Platelet Count 283 10^3/uL (150-450); Red Blood Count 3.16 10^6 /uL (4.18-5.48); Red Cell Distribution Width 17 % (10-15); White Blood Count 15.7 10^3/uL (3.5-10.8)
[2020-12-26 07:11] LABS: Calcium 8.6 mg/dL (8.6-10.3); EGFR African American 106.3 (>60); EGFR Non-African American 87.9 (>60); Magnesium 1.7 mg/dL (1.9-2.7); Potassium 3.7 mmol/L (3.5-5.0)
[2020-12-26] MEDS: Cholecalciferol (VIT D3) 1,000 unit TAB PO SCH (09:04)
[2020-12-26] MEDS: Cefepime 2 GM in Dextrose 2 GM/50 ML BAG IV SCH ×2 (09:04→22:15)
[2020-12-26] MEDS: Insulin GLARGINE 100 un/ml 10 ml VIAL SUBCUT SCH ×2 (09:07→22:15)
[2020-12-26] MEDS: Saline FLUSH-CENTRAL 10 ML SYRINGE CENT\\PICC SCH ×2 (09:07→22:15)
[2020-12-26 14:12] LABS: Rapid COVID-19 Molecular Undetected (Undetected)
[2020-12-27 06:22] LABS: ABS Basophils 0.1 10^3/ul (0-0.2); ABS Eosinophils 0.8 10^3/ul (0-0.6); ABS Lymphocytes 1.4 10^3/ul (1.0-4.8); ABS Monocytes 0.8 10^3/ul (0-0.8); ABS Neutrophils 11.1 10^3/ul (1.5-7.7); Eosinophil % 5.9 %; Hematocrit 29 % (42-52); Hemoglobin 9.5 g/dL (14.0-18.0); Lymphocyte % 9.6 %; Mean Corpuscular HGB Conc 33 g/dL (31-36); Mean Corpuscular Hemoglobin 29 pg (27-31); Mean Corpuscular Volume 88 fL (80-94); Mean Platelet Volume 6.4 fL (7.4-10.4); Platelet Count 293 10^3/uL (150-450); Red Blood Count 3.25 10^6 /uL (4.18-5.48); Red Cell Distribution Width 18 % (10-15); White Blood Count 14.1 10^3/uL (3.5-10.8)
[2020-12-27 06:41] LABS: Calcium 9.2 mg/dL (8.6-10.3); EGFR Non-African American 94.2 (>60); Magnesium 1.6 mg/dL (1.9-2.7); Potassium 3.6 mmol/L (3.5-5.0)
[2020-12-27] MEDS ORDERED: Magnesium Sulfate 2 gm BAG 2 GM/50 ML BAG IVPB ONE (07:14)
[2020-12-27] MEDS: Saline FLUSH-CENTRAL 10 ML SYRINGE CENT\\PICC SCH (11:30)
[2020-12-27] MEDS: Cholecalciferol (VIT D3) 1,000 unit TAB PO SCH (11:34)
[2020-12-27] MEDS: Collagenase 250 units/gm OINT 1 tube TOPICAL SCH (11:36)
[2020-12-27] MEDS: Insulin GLARGINE 100 un/ml 10 ml VIAL SUBCUT SCH (11:55)
[2020-12-27 14:15] VITALS: BP 134/78
== END 2020-12-27 14:30 | DRG 871 ==
LOC: ED 15:28 → SUATTDRO 19:08 → ICU 19:08 → MEDTELE 12-22 18:27
PROVIDERS: ADMIT Internal Medicine Critical Care Medicine; ATTEND Internal Medicine

== ENCOUNTER 2021-03-21 03:09 | Inpatient (IN) ==
[2021-03-21] MEDS ORDERED: Pantoprazole VIAL 40 MG VIAL IV ONE (03:14)
[2021-03-21] MEDS ORDERED: Pantoprazole 80 mg in NS BAG 80 MG/250 ML BAG IV ONE (03:14)
[2021-03-21] MEDS ORDERED: Lactated Ringers 500 ml BAG 500 ML IV ONE ×2 (03:30→04:04)
[2021-03-21 03:35] LABS: ABS Basophils 0.1 10^3/ul (0-0.2); ABS Eosinophils 0.3 10^3/ul (0-0.6); ABS Lymphocytes 0.6 10^3/ul (1.0-4.8); ABS Monocytes 0.8 10^3/ul (0-0.8); ABS Neutrophils 13.8 10^3/ul (1.5-7.7); Eosinophil % 1.9 %; Hematocrit 34 % (42-52); Hemoglobin 11.2 g/dL (14.0-18.0); Lymphocyte % 3.7 %; Mean Corpuscular HGB Conc 33 g/dL (31-36); Mean Corpuscular Hemoglobin 28 pg (27-31); Mean Corpuscular Volume 86 fL (80-94); Mean Platelet Volume 6.2 fL (7.4-10.4); Platelet Count 350 10^3/uL (150-450); Red Cell Distribution Width 17 % (10-15); White Blood Count 15.6 10^3/uL (3.5-10.8)
[2021-03-21 03:44] LABS: Activated Partial Thrombo Time 34.8 seconds (26.0-38.0); INR 1.22 (0.86-1.15)
[2021-03-21 03:50] LABS: Albumin 3.4 g/dL (3.2-5.2); Albumin/Globulin Ratio 0.9 (1-3); Calcium 9.4 mg/dL (8.6-10.3); Globulin 3.7 g/dL (2-4); Potassium 4.4 mmol/L (3.5-5.0); Total Bilirubin 0.3 mg/dL (0.2-1.0); Total Protein 7.1 g/dL (6.4-8.9); eGFR CKD-EPI 73.2 (>60)
[2021-03-21] MEDS ORDERED: Albuterol HFA INHALER 8 gm MDI INH PRN (04:52)
[2021-03-21] MEDS ORDERED: Dextrose 50% Syringe 50 ml 25 GM/50 ML SYRINGE IV PUSH PRN (05:03)
[2021-03-21] MEDS ORDERED: NS 0.9% 1000 ml BAG 1,000 ML IV SCH (05:15)
[2021-03-21 05:33] LABS: Digoxin 0.5 ng/ml (0.8-2.0)
[2021-03-21] MEDS ORDERED: Vancomycin 1,250 MG in NS 0.9% 250 ml 250 ML IVPB ONE (06:01)
[2021-03-21] MEDS ORDERED: Cefepime 1 GM in Dextrose 1 GM/50 ML BAG IV ONE (06:01)
[2021-03-21 06:36] LABS: Hematocrit 30 % (42-52); Hemoglobin 9.9 g/dL (14.0-18.0)
[2021-03-21] MEDS ORDERED: Cefepime ADVAN 1 GM in NS 0.9% 50 ML 50 ML IVPB SCH (12:00)
[2021-03-21] MEDS ORDERED: Vancomycin per Pharmacy 1 EA NOTE FOLLOW UP SCH (12:00)
[2021-03-21] MEDS: Cefepime 2 GM in Dextrose 2 GM/50 ML BAG IV SCH (12:42)
[2021-03-21 13:03] LABS: Hematocrit 30 % (42-52); Hemoglobin 9.7 g/dL (14.0-18.0)
[2021-03-21] MEDS ORDERED: Pantoprazole 80 mg in NS BAG 80 MG/250 ML BAG IV SCH (14:00)
[2021-03-21] MEDS ORDERED: fentaNYL 100 mcg/2 ml 50 MCG/ML VIAL ONE (14:29)
[2021-03-21] MEDS ORDERED: Midazolam 10 mg/10 ml VIAL 1 mg/ml 10 ml VIAL (10 mg) ONE (14:29)
[2021-03-21] MEDS ORDERED: NS 0.9% 500 ml BAG 500 ML IV ONE ×2 (16:29→20:56)
[2021-03-21 19:11] LABS: Hematocrit 28 % (42-52); Hemoglobin 9.4 g/dL (14.0-18.0)
[2021-03-21] MEDS: Vancomycin 750 MG in NS 0.9% 250 ML IVPB SCH (20:36)
[2021-03-21] MEDS: Collagenase 250 units/gm OINT 1 tube TOPICAL SCH (21:08)
[2021-03-21] MEDS ORDERED: Lactated Ringers 1000 ml BAG 1,000 ML IV SCH (23:00)
[2021-03-22] MEDS: Cefepime 2 GM in Dextrose 2 GM/50 ML BAG IV SCH (01:52)
[2021-03-22 02:27] LABS: Hematocrit 32 % (42-52); Hemoglobin 10.2 g/dL (14.0-18.0)
[2021-03-22] MEDS: Collagenase 250 units/gm OINT 1 tube TOPICAL SCH (09:38)
[2021-03-22 09:46] LABS: ABS Eosinophils 0.5 10^3/ul (0-0.6); ABS Lymphocytes 0.9 10^3/ul (1.0-4.8); ABS Monocytes 0.7 10^3/ul (0-0.8); ABS Neutrophils 8.9 10^3/ul (1.5-7.7); Eosinophil % 4.3 %; Hematocrit 31 % (42-52); Lymphocyte % 8.5 %; Mean Corpuscular HGB Conc 32 g/dL (31-36); Mean Corpuscular Hemoglobin 28 pg (27-31); Mean Corpuscular Volume 88 fL (80-94); Mean Platelet Volume 6.3 fL (7.4-10.4); Platelet Count 290 10^3/uL (150-450); Red Blood Count 3.53 10^6 /uL (4.18-5.48); Red Cell Distribution Width 17 % (10-15); White Blood Count 11.1 10^3/uL (3.5-10.8)
[2021-03-22 10:01] LABS: Calcium 9.5 mg/dL (8.6-10.3); Potassium 4.3 mmol/L (3.5-5.0); eGFR CKD-EPI 74.9 (>60)
[2021-03-22] MEDS: DOXYcycline 100 MG in NS 0.9% 250 ml 250 ML IVPB SCH ×2 (10:44→20:49)
[2021-03-22] MEDS: Vancomycin 750 MG in NS 0.9% 250 ML IVPB SCH (11:23)
[2021-03-22] MEDS ORDERED: cefTRIAXone 1 gm/50 mL NS BAG 1 GM/50 ML BAG IVPB SCH (14:00)
[2021-03-22 17:49] LABS: Urine Appearance Cloudy; Urine Bilirubin Negative (Negative); Urine Blood Negative (Negative); Urine Color Yellow; Urine Glucose Negative (Negative); Urine Ketones Negative (Negative); Urine Nitrite Negative (Negative); Urine Protein Negative (Negative); Urine Specific Gravity 1.011 (1.002-1.030); Urine Urobilinogen Negative (Negative)
[2021-03-22 17:52] LABS: Urine Bacteria 1+ (Absent); Urine Red Blood Cell 1+(3-5/hpf) (Absent); Urine Squamous Epithelial Cell Present (Absent); Urine White Blood Cell 3+(>20/hpf) (Absent)
[2021-03-23 05:25] LABS: ABS Eosinophils 0.5 10^3/ul (0-0.6); ABS Lymphocytes 0.9 10^3/ul (1.0-4.8); ABS Monocytes 0.7 10^3/ul (0-0.8); ABS Neutrophils 5.9 10^3/ul (1.5-7.7); Eosinophil % 5.7 %; Hematocrit 29 % (42-52); Hemoglobin 9.4 g/dL (14.0-18.0); Lymphocyte % 11.4 %; Mean Corpuscular HGB Conc 33 g/dL (31-36); Mean Corpuscular Hemoglobin 28 pg (27-31); Mean Corpuscular Volume 86 fL (80-94); Mean Platelet Volume 6.2 fL (7.4-10.4); Platelet Count 263 10^3/uL (150-450); Red Blood Count 3.33 10^6 /uL (4.18-5.48); Red Cell Distribution Width 17 % (10-15); White Blood Count 8.1 10^3/uL (3.5-10.8)
[2021-03-23 05:40] LABS: Magnesium 1.4 mg/dL (1.9-2.7); eGFR CKD-EPI 79.4 (>60)
[2021-03-23] MEDS ORDERED: Vancomycin Trough Check NOTE FOLLOW UP ONE (08:00)
[2021-03-23 08:03] VITALS: BP 95/50
[2021-03-23] MEDS ORDERED: Magnesium Sulfate IV 3 GM in NS 0.9% 100 ml BAG 100 ML IVPB ONE (08:45)
[2021-03-23] MEDS: DOXYcycline 100 MG in NS 0.9% 250 ml 250 ML IVPB SCH (10:19)
[2021-03-23] MEDS: Collagenase 250 units/gm OINT 1 tube TOPICAL SCH (10:19)
[2021-03-23 13:18] LABS: % Iron Saturation 10 % (14 - 50); Total Iron Binding Capacity 181 mcg/dL (250 - 400); Transferrin 153 mg/dL (200 - 360)
== END 2021-03-23 10:20 | DRG 871 ==
LOC: ED 03:09 → EDHOLD 05:21 → SUATTDRO 05:21 → MEDTELE 10:21
PROVIDERS: ADMIT Internal Medicine; ATTEND Student in an Organized Health Care Education/Training Program

== ENCOUNTER 2021-06-21 09:45 | Inpatient (IN) ==
[~2021-06-21 09:45] MED LIST changes: +Buffered Lidocaine 1% SYRIN 1 ml INTRADERM ONE; +Famotidine IV 10 MG/ML 2 ml VIAL (20 mg) IV ONE; -Ibuprofen TAB* 600 MG PO ONE; +Lactated Ringers 1000 ml BAG 1,000 ML IV SCH
[2021-06-21] MEDS ORDERED: Famotidine IV 10 MG/ML 2 ml VIAL (20 mg) ONE (11:51)
[2021-06-21] MEDS ORDERED: Metoclopramide 5 MG/ML VIAL (10 mg) ONE (11:51)
[2021-06-21] MEDS ORDERED: ceFAZolin 2 GM in NS PREMIX 2 GM/100 ML BAG IVPB ONE (11:59)
[2021-06-21] MEDS ORDERED: Lidocaine 2% PF 5 ML VIAL ONE (13:29)
[2021-06-21] MEDS ORDERED: Etomidate 20 mg/10 ml 2 MG/ML 10 ml VIAL ONE (13:29)
[2021-06-21] MEDS ORDERED: Bupivacaine 0.5% 50 ML MDV VIAL ONE (13:39)
[2021-06-21] MEDS ORDERED: Phenylephrine 40 mcg/mL 10mL (400mcg) SYRINGE ONE ×2 (14:19→14:51)
[2021-06-21] MEDS ORDERED: Propofol 10 MG/ML 20 ML BTL ONE (14:19)
[2021-06-21] MEDS ORDERED: fentaNYL 100 mcg/2 ml 50 MCG/ML VIAL ONE (14:20)
[2021-06-21] MEDS ORDERED: Midazolam 2 mg/2 ml VIAL 1 mg/ml 2 ml VIAL (2 mg) ONE (14:20)
[2021-06-21] MEDS ORDERED: oxyCODONE/Acetamin 5/325 mg TAB PO PRN (14:42)
[2021-06-21] MEDS ORDERED: fentaNYL 100 mcg/2 ml 50 MCG/ML VIAL IV PRN (14:42)
[2021-06-21] MEDS ORDERED: Prochlorperazine 5 mg/ml 2 ml VIAL (10 mg) IV PRN (14:42)
[2021-06-21] MEDS ORDERED: HYDROcodone/ACETAMIN 5/325 mg TAB PO PRN (14:42)
[2021-06-21] MEDS ORDERED: Naloxone 0.4 mg VIAL 0.4 mg/ml 1 ml VIAL IV PRN (14:42)
[2021-06-21] MEDS ORDERED: diPHENhydraMINE 25 mg TAB PO PRN (15:42)
[2021-06-21] MEDS ORDERED: Lactulose 30 ml UDC PO PRN (15:42)
[2021-06-21] MEDS ORDERED: Ondansetron 4 mg VIAL 2 MG/ML 2 ml VIAL IV PRN (15:42)
[2021-06-21] MEDS ORDERED: Ondansetron ODT 4 mg TAB 4 MG TAB PO PRN (15:42)
[2021-06-21] MEDS ORDERED: diPHENhydraMINE IV 50 MG/ML 1 ml VIAL (BENADRYL) IV PRN (15:42)
[2021-06-21] MEDS ORDERED: Magnesium Hydroxide LIQ 30 ML UDC PO PRN ×2 (15:42→15:50)
[2021-06-21] MEDS ORDERED: Albuterol HFA INHALER 8 gm MDI INH PRN (15:50)
[2021-06-21] MEDS ORDERED: Sodium Phosphate ADULT ENEMA 133 ML BTL PR PRN (15:50)
[2021-06-21] MEDS ORDERED: Dextrose 50% Syringe 50 ml 25 GM/50 ML SYRINGE IV PUSH PRN (15:55)
[2021-06-21] MEDS ORDERED: Vancomycin per Pharmacy 1 EA NOTE FOLLOW UP SCH (16:00)
[2021-06-21] MEDS ORDERED: HYDROcodone/ACETAMIN 5/325 mg TAB ONE (16:07)
[2021-06-21] MEDS ORDERED: Morphine 4 MG/ML VIAL (1 ml) IV PRN (17:22)
[2021-06-21] MEDS ORDERED: Vancomycin 1500 MG IV - x ONCE IVPB ONE (18:00)
[2021-06-21] MEDS: Lactated Ringers 1000 ml BAG 1,000 ML IV SCH (18:18)
[2021-06-21] MEDS: Insulin GLARGINE 100 un/ml 10 ml VIAL SUBCUT SCH (20:56)
[2021-06-21] MEDS: Magnesium Hydroxide LIQ 30 ML UDC PO SCH (20:57)
[2021-06-22 05:40] LABS: Hematocrit 32 % (42-52); Hemoglobin 10.7 g/dL (14.0-18.0); Mean Platelet Volume 5.9 fL (7.4-10.4); Platelet Count 223 10^3/uL (150-450)
[2021-06-22 06:20] LABS: Calcium 8.7 mg/dL (8.6-10.3); Potassium 4.4 mmol/L (3.5-5.0); eGFR CKD-EPI 71.9 (>60)
[2021-06-22] MEDS: Lactated Ringers 1000 ml BAG 1,000 ML IV SCH ×2 (06:22→18:05)
[2021-06-22] MEDS: Vancomycin 1000 MG in NS 0.9% 250 ML IVPB SCH ×2 (06:24→18:06)
[2021-06-22] MEDS: Vitamin THERAPEUTIC TAB PO SCH (09:34)
[2021-06-22] MEDS: Magnesium Hydroxide LIQ 30 ML UDC PO SCH ×2 (09:35→22:20)
[2021-06-22] MEDS: Insulin GLARGINE 100 un/ml 10 ml VIAL SUBCUT SCH (22:22)
[2021-06-23 05:41] LABS: Hematocrit 26 % (42-52); Hemoglobin 8.7 g/dL (14.0-18.0); Mean Platelet Volume 6.3 fL (7.4-10.4); Platelet Count 203 10^3/uL (150-450)
[2021-06-23 05:59] LABS: Vancomycin Trough 14.1 mcg/mL
[2021-06-23] MEDS ORDERED: Vancomycin Trough Check NOTE FOLLOW UP ONE (06:00)
[2021-06-23 06:15] LABS: eGFR CKD-EPI 59.1 (>60)
[2021-06-23] MEDS: Vancomycin 1000 MG in NS 0.9% 250 ML IVPB SCH ×2 (06:20→18:42)
[2021-06-23] MEDS: Vitamin THERAPEUTIC TAB PO SCH (09:14)
[2021-06-23] MEDS: Magnesium Hydroxide LIQ 30 ML UDC PO SCH ×2 (09:23→21:18)
[2021-06-23 09:50] LABS: ABS Basophils 0.1 10^3/ul (0-0.2); ABS Eosinophils 0.3 10^3/ul (0-0.6); ABS Lymphocytes 1.4 10^3/ul (1.0-4.8); ABS Monocytes 0.9 10^3/ul (0-0.8); ABS Neutrophils 6.5 10^3/ul (1.5-7.7); Eosinophil % 3.5 %; Hematocrit 27 % (42-52); Hemoglobin 8.8 g/dL (14.0-18.0); Lymphocyte % 15.4 %; Mean Corpuscular HGB Conc 32 g/dL (31-36); Mean Corpuscular Hemoglobin 27 pg (27-31); Mean Corpuscular Volume 84 fL (80-94); Mean Platelet Volume 6.1 fL (7.4-10.4); Platelet Count 204 10^3/uL (150-450); Red Blood Count 3.24 10^6 /uL (4.18-5.48); Red Cell Distribution Width 22 % (10-15); White Blood Count 9.2 10^3/uL (3.5-10.8)
[2021-06-23] MEDS ORDERED: NS 0.9% 1000 ml BAG 1,000 ML IV SCH (17:00)
[2021-06-23] MEDS: Insulin GLARGINE 100 un/ml 10 ml VIAL SUBCUT SCH (21:31)
[2021-06-24] MEDS: Vancomycin 1000 MG in NS 0.9% 250 ML IVPB SCH ×2 (06:22→18:42)
[2021-06-24 07:54] LABS: Hematocrit 26 % (42-52); Hemoglobin 8.6 g/dL (14.0-18.0); Mean Platelet Volume 6.3 fL (7.4-10.4); Platelet Count 189 10^3/uL (150-450)
[2021-06-24 08:06] LABS: Calcium 8.3 mg/dL (8.6-10.3); Potassium 4.1 mmol/L (3.5-5.0); eGFR CKD-EPI 81.9 (>60)
[2021-06-24] MEDS: Magnesium Hydroxide LIQ 30 ML UDC PO SCH ×2 (09:39→20:40)
[2021-06-24] MEDS: Vitamin THERAPEUTIC TAB PO SCH (09:40)
[2021-06-24] MEDS: Insulin GLARGINE 100 un/ml 10 ml VIAL SUBCUT SCH (21:04)
[2021-06-25] MEDS ORDERED: Vancomycin Trough Check NOTE FOLLOW UP ONE (05:30)
[2021-06-25 05:58] LABS: Hematocrit 26 % (42-52); Hemoglobin 8.4 g/dL (14.0-18.0); Mean Platelet Volume 6.4 fL (7.4-10.4); Platelet Count 224 10^3/uL (150-450)
[2021-06-25] MEDS: Vancomycin 1000 MG in NS 0.9% 250 ML IVPB SCH (08:06)
[2021-06-25] MEDS: Vitamin THERAPEUTIC TAB PO SCH (09:24)
[2021-06-25] MEDS: Magnesium Hydroxide LIQ 30 ML UDC PO SCH (09:25)
[2021-06-25 10:34] LABS: Rapid COVID-19 Molecular Undetected (Undetected)
[2021-06-25 11:34] VITALS: BP 105/59
== END 2021-06-25 15:00 | DRG 617 ==
LOC: OR 09:45 → SSU 17:01
PROVIDERS: ADMIT Orthopaedic Surgery; ATTEND Orthopaedic Surgery
PROC: O.ORAMP (2021-06-21 11:45)

== ENCOUNTER 2023-08-28 14:43 | Observation (INO) ==
[2023-08-28 18:50] LABS: ABS Basophils 0.1 10^3/uL (0.0-0.1); ABS Eosinophils 0.3 10^3/uL (0.0-0.5); ABS Lymphocytes 1.4 10^3/uL (1.0-4.8); ABS Monocytes 0.7 10^3/uL (0.0-1.1); ABS Neutrophils 5.7 10^3/uL (1.5-7.6); ABS Nucleated RBC 0.01 10^3/ul; Eosinophil % 3.1 %; Hematocrit 39.6 % (38-53); Hemoglobin 13.4 g/dL (13.2-16.3); Lymphocyte % 17.1 %; Mean Corpuscular Volume 94.3 fL (80-97); Mean Platelet Volume 6.8 fL (7.5-11.2); Nucleated Red Blood Cells % 0.1 %/100WBC (0.0-0.8); Platelet Count 179 10^3/uL (150-450); Red Cell Distribution Width 16.4 % (12-17); White Blood Count 8.1 10^3/uL (3.6-10.2)
[2023-08-28 18:59] LABS: INR 1.2 (0.83-1.13)
[2023-08-28 19:23] LABS: Albumin 4.1 g/dL (3.2-5.2); Albumin/Globulin Ratio 1.4 (1-3); C Reactive Protein 53.25 mg/L (<8.01); Calcium 9.2 mg/dL (8.6-10.3); Creatinine, Serum 1.13 mg/dL (0.67-1.17); Globulin 2.9 g/dL (2-4); Potassium 4.5 mmol/L (3.5-5.0); Total Bilirubin 0.6 mg/dL (0.2-1.0); eGFR CKD-EPI 66.5 (>60)
[2023-08-28] MEDS: Cefepime 1 GM in Dextrose 1 GM/50 ML BAG IV ONE (19:43)
[2023-08-28] MEDS ORDERED: Vancomycin 1,750 MG in NS 0.9% 250 ml 250 ML IVPB SCH (20:00)
[2023-08-28] MEDS ORDERED: Vancomycin 2,000 MG in NS 0.9% 250 ml 250 ML IVPB SCH (20:00)
[2023-08-28 20:14] LABS: Erythrocyte Sed Rate 36 mm/Hr (0-19)
[2023-08-28] MEDS: Iodixanol (CONTRAST) 320 MG/ML 100 ML SDV IV ONE (20:23)
[2023-08-28] MEDS: Lactated Ringers 1000 ml BAG 1,000 ML IV ONE (21:34)
[2023-08-28] MEDS: Vancomycin 2,000 MG in NS 0.9% 500 ml BAG 500 ML IVPB ONE (21:34)
[2023-08-28] MEDS ORDERED: Senna TAB 8.6 mg TAB PO PRN (23:43)
[2023-08-28] MEDS ORDERED: Polyethylene Glycol 3350 17 GM PACKET PO PRN (23:43)
[2023-08-29] MEDS ORDERED: Dextrose 50% Syringe 50 ml 25 GM/50 ML SYRINGE IV PUSH PRN (01:55)
[2023-08-29] MEDS ORDERED: Zosyn per Pharmacy NOTE FOLLOW UP SCH (02:00)
[2023-08-29] MEDS ORDERED: Vancomycin per Pharmacy 1 EA NOTE FOLLOW UP SCH (02:00)
[2023-08-29] MEDS ORDERED: Cefepime 2 GM in Dextrose 2 GM/50 ML BAG IV SCH (02:00)
[2023-08-29] MEDS: Piperacillin/Tazobac 3.375 BAG 3.375 GM/100 ML BAG IV ONE (02:17)
[2023-08-29] MEDS: Lactated Ringers 1000 ml BAG 1,000 ML IV ONE (02:17)
[2023-08-29 06:01] LABS: ABS Basophils 0.1 10^3/uL (0.0-0.1); ABS Eosinophils 0.3 10^3/uL (0.0-0.5); ABS Lymphocytes 1.3 10^3/uL (1.0-4.8); ABS Monocytes 0.6 10^3/uL (0.0-1.1); ABS Neutrophils 5.4 10^3/uL (1.5-7.6); Eosinophil % 4.1 %; Hematocrit 38.3 % (38-53); Hemoglobin 13.1 g/dL (13.2-16.3); Mean Corpuscular Hemoglobin 32.1 pg (27-33); Mean Corpuscular Hgb Conc 34.1 g/dL (31-36); Mean Corpuscular Volume 94.2 fL (80-97); Mean Platelet Volume 6.7 fL (7.5-11.2); Platelet Count 173 10^3/uL (150-450); Red Blood Count 4.07 10^6/uL (4.06-5.63); Red Cell Distribution Width 16.1 % (12-17); White Blood Count 7.7 10^3/uL (3.6-10.2)
[2023-08-29] MEDS: ZOSYN 3.375 GM Q8H per EXTENDED INFUSION IV SCH ×2 (06:19→14:23)
[2023-08-29 06:34] LABS: Calcium 8.8 mg/dL (8.6-10.3); Creatinine, Serum 1.21 mg/dL (0.67-1.17); Magnesium 1.7 mg/dL (1.9-2.7); Potassium 4.3 mmol/L (3.5-5.0); eGFR CKD-EPI 61.3 (>60)
[2023-08-29] MEDS: Insulin GLARGINE 100 un/ml 10 ml VIAL SUBCUT SCH (07:52)
[2023-08-29] MEDS: Cholecalciferol (VIT D3) 1,000 unit TAB PO SCH (08:17)
[2023-08-29] MEDS: Magnesium Sulfate IV 1GM/100ML 1 GM/100 ML BAG IV ONE (08:19)
[2023-08-29] MEDS: Vancomycin 1000 MG in NS 0.9% 250 ML IVPB SCH ×2 (10:30→20:54)
[2023-08-30] MEDS ORDERED: Vancomycin Trough Check NOTE FOLLOW UP ONE (08:30)
[2023-08-30 09:04] LABS: Calcium 8.5 mg/dL (8.6-10.3); Creatinine, Serum 1.25 mg/dL (0.67-1.17); Magnesium 1.9 mg/dL (1.9-2.7); Potassium 4.6 mmol/L (3.5-5.0); eGFR CKD-EPI 58.9 (>60)
[2023-08-30] MEDS: ceFAZolin 2 GM in NS PREMIX 2 GM/100 ML BAG IVPB SCH (10:26)
[2023-08-30] MEDS: ceFAZolin 2 GM in NS 100 ml - ONCE (Pharmacy Admix) IVPB SCH (10:55)
[2023-08-30] MEDS ORDERED: Dextrose 50% Syringe 50 ml 25 GM/50 ML SYRINGE IV PUSH PRN (11:53)
[2023-08-30 14:16] VITALS: BP 109/66
== END 2023-08-30 15:50 | disposition home or self-care (01) ==
LOC: ED 14:43 → INTOOBSV 23:43 → EDHOLD 23:43 → MED 08-29 11:38
PROVIDERS: ADMIT Student in an Organized Health Care Education/Training Program; ATTEND Student in an Organized Health Care Education/Training Program